=== PATIENT | male | born 1950 | race Caucasian/White ===

== ENCOUNTER 2018-02-01 21:07 | Inpatient (IN) ==
--- NOTE | 2018-02-01 21:58 | XR ---
EXAM DATE: 02/01/2018 9:56 PM EST AGE/SEX: 67 years / Male INDICATIONS: Cardiac disease. CLINICAL DATA: This is the patient's initial encounter. Patient reports that signs and symptoms have been present for 1 day and indicates a pain score of 0/10. MEDICAL/SURGICAL HISTORY: Hypertension. Cardiovascular disease. Dysphagia. . Cardiac cath. COMPARISON: No prior exams available for comparison. FINDINGS: A single AP view of the chest demonstrates the lungs to be symmetrically aerated without evidence of mass, infiltrate or effusion. The cardiomediastinal contours are unremarkable. Osseous structures a re intact. CONCLUSION: 1. No acute cardiopulmonary disease. Electronically signed by: Vin Goddard MD Board Certified Radiologist 02/01/2018 9:57 PM SHERIDAN T
--- NOTE | 2018-02-01 22:25 | ED ---
HPI General Chief complaint: Neuro Symptoms/Deficit Stated complaint: Double vision, trouble breathing Time Seen by Provider: 02/01/18 21:28 Source: patient and family Limitations: no limitations History of Present Illness HPI narrative: Patient is a 67-year-old male who presents with complaint of progressive weakness of different parts. He states that approximately 1 month ago he started to have intermittent dyspnea. He then started to have some double vision and went to an green building energy engineer whom sent him to an client finance analyst. The client finance analyst noticed a droopy eyelid on the left and he has been referred for an outpatient MRI and further workup. The patient has started to have difficulty swallowing now with increased dyspnea intermittently. At rest he does not feel dyspneic. He denies any weakness in his hands after use. He denies any weakness or numbness to his extremities. No difficulty urinating nor incontinence. No fever nor chills. This had never happened prior to this. He does have a history of previous thyroid cancer. Onset (ago): week(s) Location: face Radiation: non-radiation Severity: moderate Relieving factors: none Exacerbating factors: none Treatments prior to arrival: Reports none Related Data Home Medications Medication Instructions Recorded Confirmed lisinopril 40 mg PO DAILY 02/01/18 02/01/18 coenzyme Q10 [CoQ-10] 100 mg PO DAILY 02/02/18 02/02/18 evolocumab [Repatha Syringe] 140 mg SUBCUT Q2W 02/02/18 02/02/18 fenofibric acid 135 mg PO DAILY 02/02/18 02/02/18 [id number]-[id number]-dcp C-Mn 3 tab DAILY 02/02/18 02/02/18 [Glucosamine Chondroitin MaxStr] hydrochlorothiazide 12.5 mg PO DAILY 02/02/18 02/02/18 meloxicam 7.5 mg PO DAILY 02/02/18 02/02/18 omega 7-ipo-yvq-fish oil [Fish Oil] 3,000 mg DAILY 02/02/18 02/02/18 Allergies Allergy/AdvReac Type Severity Reaction Status Date / Time No Known Allergies Allergy Verified 02/01/18 21:24 Review of Systems ROS: all other systems reviewed are negative [facility] Medical History Medical History Blockage of coronary artery of heart (Acute) HTN (hypertension) (Acute) Hyperlipidemia (Acute) Prediabetes (Acute) Thyroid nodule (Acute) Surgical History Surgical History Hx of right heart catheterization (Acute) Family History Family History Father Testicular cancer Mother Colon cancer Brother Pancreatic cancer Social History Social History Substance History: No History of Abuse Second Hand Smoke Exposure: No Smoking Status: Never smoker How Often Do You Have a Drink Containing Alcohol: Monthly or less Recent Travel in [facility] within the Last 8 Weeks: No Recent Out of Country Travel within the Last 8 Weeks: No Immunization History Tetanus Immunization: >5 Years Exam Narrative Exam Narrative: GENERAL: Well-appearing male in no acute distress SKIN: Focused skin assessment warm/dry. HEAD: Atraumatic. Normocephalic. EYES: Pupils equal and round. No scleral icterus. No injection or drainage. ENT: No nasal bleeding or discharge. Mucous membranes pink and moist. NECK: Trachea midline. No JVD. CARDIOVASCULAR: Regular rate and rhythm. No murmur appreciated. Intact and equal peripheral pulses. RESPIRATORY: No accessory muscle use. Clear to auscultation. Breath sounds equal bilaterally. GASTROINTESTINAL: Abdomen soft, non-tender, nondistended. Hepatic and splenic margins not palpable. MUSCULOSKELETAL: No obvious deformities. No clubbing. No cyanosis. No edema. NEUROLOGICAL: Awake and alert. No weakness or numbness to the extremities. Left ptosis. Some dysarthria. PSYCHIATRIC: Appropriate mood and affect; insight and judgment normal. Course Initial Documented Vital Signs Temperature 98.5 F 02/01/18 21:19 Pulse Rate 73 02/01/18 21:19 Respiratory Rate 18 02/01/18 21:19 Blood Pressure 194/109 H 02/01/18 21:19 Pulse Oximetry 97 02/01/18 21:19 Last Documented Vital Signs Temperature 97.8 F 02/02/18 14:35 Pulse Rate 58 L 02/02/18 14:35 Respiratory Rate 18 02/02/18 14:35 Blood Pressure 112/74 02/02/18 14:35 Pulse Oximetry 96 02/02/18 14:35 Sign Out Sign Out Data: Patient Sign Out occurred on 02/01/18 at 23:06. Patient's care was discussed, and care was transferred from Idalmis Jj MD to Beti Guzmán DO. Sign Out Comment: Progressively worsening neuro symptoms. CT head pending. Plan for likely admission. Last updated by Idalmis Jj MD at 02/01/18 23:01 Post-Handoff Eval: 67yo M with history of thyroid nodule, HTN, CAD here with progressive neuro symptoms. Pt started with diplopia and went to green building energy engineer and client finance analyst and was found to ptosis of left eyelid. Has an outpatient MRI brain to r/o stroke that he has not gotten. Then he had dyspnea and went to his transport conductor and he said his heart was ok. Dyspnea has improved but now has difficulty swallowing for the last few days. Has trouble with chewing and his jaw muscle as well. Started having slurred speech today. Denies any focal weakness or numbness in his arms or legs. Labs reviewed, no leukocytosis. H/H normal. BUN/creatinine is elevated at 31/1.41. No prior to compare. Troponin negative. CXR negative. CT brain negative. BP was initially elevated at 207/ 91 and I ordered labetalol. However, BP is now systolic 145 so cancelled labetlol. Pt's symptoms are progressively worsening and is now having difficulty swallowing and slurred speech. Feel that he would benefit from MRIs and neuro consult. Discussed with Dr. Lopez and accepted to his service. Medical Decision Making MDM Narrative Medical decision making narrative: Patient is a 67-year-old male who presents with complaint of progressive neurologic symptoms over the last month. He is hypertensive on arrival but hemodynamically stable. NIF was obtained on arrival which was approximately 40. Imaging and labs pending at time of checkout. Medical Screen Exam Complete: Yes Emergency Medical Condition: Yes Differential Diagnosis Differential Diagnosis: Differential diagnosis includes but is not limited to acute stroke, dissection, aneurysm, myasthenia gravis, multiple sclerosis. Medical Records Medical records reviewed: Yes I reviewed the patient's medical records. Lab Data Result diagrams: 02/01/18 21:50 02/02/18 10:55 Lab Results 02/01/18 02/01/18 02/01/18 Range/Units 21:50 21:50 21:50 WBC 9.9 (4.0-11.0) th/mm3 RBC 4.78 (4.50-5.90) mil/mm3 Hgb 15.8 (13.0-17.0) gm/dL Hct 45.5 (39.0-51.0) % MCV 95.1 (80.0-100.0) fL MCH 33.1 (27.0-34.0) pg MCHC 34.8 (32.0-36.0) % RDW 13.0 (11.6-17.2) % Plt Count 264 (150-450) th/mm3 MPV 7.7 (7.0-11.0) fL Neut % (Auto) 51.7 (16.0-70.0) % Lymph % (Auto) 36.5 (9.0-44.0) % Whitley % (Auto) 10.0 H (0.0-8.0) % Eos % (Auto) 1.4 (0.0-4.0) % Baso % (Auto) 0.4 (0.0-2.0) % Neut # (Auto) 5.1 (1.8-7.7) th/mm3 Lymph # (Auto) 3.6 (1.0-4.8) th/mm3 Whitley # (Auto) 1.0 H (0.0-0.9) th/mm3 Eos # (Auto) 0.1 (0.0-0.4) th/mm3 Baso # (Auto) 0.0 (0.0-0.2) th/mm3 WBC Differential . Differential Comment Auto diff final ESR (0-20) mm/hr PT 10.7 (9.8-11.6) sec INR 1.1 Ratio APTT 33.1 H (23.4-31.7) sec Sodium 138 (136-145) meq/L Potassium 4.0 (3.5-5.1) meq/L Chloride 101 (98-107) meq/L Carbon Dioxide 27.8 (21.0-32.0) meq/L Anion Gap 9 (5-15) meq/L BUN 31 H (7-18) mg/dL Creatinine 1.41 H (0.60-1.30) mg/dL Estimated GFR 50 L (>89) mL/min POC Glucose (68-110) mg/dl Random Glucose 97 (74-106) mg/dL Calcium 9.1 (8.5-10.1) mg/dL Total Bilirubin 0.6 (0.2-1.0) mg/dL AST 28 (15-37) U/L ALT 53 (12-78) U/L Alkaline Phosphatase 40 L (45-117) U/L Total Creatine Kinase 288 (39-308) U/L CK-MB (CK-2) 5.6 H (0.5-3.6) ng/mL Troponin I Less than 0.02 L (0.02-0.05) ng/mL Total Protein 8.0 (6.4-8.2) g/dL Total Protein (PEP) (6.4-8.2) gm/dL Albumin 4.3 (3.4-5.0) g/dL Vitamin B12 (193-986) pg/mL TSH (0.358-3.740) uIU/mL Free T4 (0.76-1.46) ng/dL Rheumatoid Factor Scrn (Negative) Rheumatoid Factor Titer 02/02/18 02/02/18 02/02/18 Range/Units 10:54 10:55 10:55 WBC (4.0-11.0) th/mm3 RBC (4.50-5.90) mil/mm3 Hgb (13.0-17.0) gm/dL Hct (39.0-51.0) % MCV (80.0-100.0) fL MCH (27.0-34.0) pg MCHC (32.0-36.0) % RDW (11.6-17.2) % Plt Count (150-450) th/mm3 MPV (7.0-11.0) fL Neut % (Auto) (16.0-70.0) % Lymph % (Auto) (9.0-44.0) % Whitley % (Auto) (0.0-8.0) % Eos % (Auto) (0.0-4.0) % Baso % (Auto) (0.0-2.0) % Neut # (Auto) (1.8-7.7) th/mm3 Lymph # (Auto) (1.0-4.8) th/mm3 Whitley # (Auto) (0.0-0.9) th/mm3 Eos # (Auto) (0.0-0.4) th/mm3 Baso # (Auto) (0.0-0.2) th/mm3 WBC Differential Differential Comment ESR (0-20) mm/hr PT (9.8-11.6) sec INR Ratio APTT (23.4-31.7) sec Sodium 139 (136-145) meq/L Potassium 4.1 (3.5-5.1) meq/L Chloride 106 (98-107) meq/L Carbon Dioxide 25.6 (21.0-32.0) meq/L Anion Gap 7 (5-15) meq/L BUN 25 H (7-18) mg/dL Creatinine 1.26 (0.60-1.30) mg/dL Estimated GFR 57 L (>89) mL/min POC Glucose 103 (68-110) mg/dl Random Glucose 101 (74-106) mg/dL Calcium 9.1 (8.5-10.1) mg/dL Total Bilirubin (0.2-1.0) mg/dL AST (15-37) U/L ALT (12-78) U/L Alkaline Phosphatase (45-117) U/L Total Creatine Kinase (39-308) U/L CK-MB (CK-2) (0.5-3.6) ng/mL Troponin I (0.02-0.05) ng/mL Total Protein (6.4-8.2) g/dL Total Protein (PEP) 8.0 (6.4-8.2) gm/dL Albumin (3.4-5.0) g/dL Vitamin B12 639 (193-986) pg/mL TSH 3.070 (0.358-3.740) uIU/mL Free T4 0.99 (0.76-1.46) ng/dL Rheumatoid Factor Scrn Negative (Negative) Rheumatoid Factor Titer Not Reportable 02/02/18 02/02/18 Range/Units 12:20 14:38 WBC (4.0-11.0) th/mm3 RBC (4.50-5.90) mil/mm3 Hgb (13.0-17.0) gm/dL Hct (39.0-51.0) % MCV (80.0-100.0) fL MCH (27.0-34.0) pg MCHC (32.0-36.0) % RDW (11.6-17.2) % Plt Count (150-450) th/mm3 MPV (7.0-11.0) fL Neut % (Auto) (16.0-70.0) % Lymph % (Auto) (9.0-44.0) % Whitley % (Auto) (0.0-8.0) % Eos % (Auto) (0.0-4.0) % Baso % (Auto) (0.0-2.0) % Neut # (Auto) (1.8-7.7) th/mm3 Lymph # (Auto) (1.0-4.8) th/mm3 Whitley # (Auto) (0.0-0.9) th/mm3 Eos # (Auto) (0.0-0.4) th/mm3 Baso # (Auto) (0.0-0.2) th/mm3 WBC Differential Differential Comment ESR 8 (0-20) mm/hr PT (9.8-11.6) sec INR Ratio APTT (23.4-31.7) sec Sodium (136-145) meq/L Potassium (3.5-5.1) meq/L Chloride (98-107) meq/L Carbon Dioxide (21.0-32.0) meq/L Anion Gap (5-15) meq/L BUN (7-18) mg/dL Creatinine (0.60-1.30) mg/dL Estimated GFR (>89) mL/min POC Glucose 92 (68-110) mg/dl Random Glucose (74-106) mg/dL Calcium (8.5-10.1) mg/dL Total Bilirubin (0.2-1.0) mg/dL AST (15-37) U/L ALT (12-78) U/L Alkaline Phosphatase (45-117) U/L Total Creatine Kinase (39-308) U/L CK-MB (CK-2) (0.5-3.6) ng/mL Troponin I (0.02-0.05) ng/mL Total Protein (6.4-8.2) g/dL Total Protein (PEP) (6.4-8.2) gm/dL Albumin (3.4-5.0) g/dL Vitamin B12 (193-986) pg/mL TSH (0.358-3.740) uIU/mL Free T4 (0.76-1.46) ng/dL Rheumatoid Factor Scrn (Negative) Rheumatoid Factor Titer Imaging Data Radiologist's impression: Chest X-Ray 02/01/18 21:42 CONCLUSION: 1. No acute cardiopulmonary disease. Head CT 02/01/18 21:42 CONCLUSION: No acute intracranial abnormality. . Carotid Doppler Study 02/02/18 00:00 CONCLUSION: Negative examination for a hemodynamically significant carotid stenosis. Dilip Enrique MD FACR Chest CT 02/02/18 00:00 CONCLUSION: 1. There is no apical lung mass. 2. Significant coronary calcifications 3. Marked fatty liver with gynecomastia Head MRI 02/02/18 22:43 CONCLUSION: No intracranial abnormality is seen. Head MRA 02/02/18 22:43 CONCLUSION: Negative MRA. Head/Brain Mag Res Venography 02/02/18 22:43 CONCLUSION: The dural sinuses are patent. Discharge Plan Discharge Disposition Patient Disposition: ED Admit(ED Internal Use Only) Discharge Condition Condition: Stable Discharge Order Discharge Orders: ED Use Only Admit Order (Routine); Ordered 02/02/18 Ordered By: Beti Guzmán Discharge Details Diagnosis: Ptosis, Slurred speech Physicians Team ED Provider: Beti Guzmán Primary Care Provider: UNKNOWN, Attending Provider: Singh Escobedo Other Providers: Jerman Denny Status ED Status: Left Department Discharge Information Discharge Date/Time: 02/02/18 03:15
[2018-02-01 22:34] LABS: Baso % (Auto) 0.4 % (0.0-2.0); Eos # (Auto) 0.1 th/mm3 (0.0-0.4); Eos % (Auto) 1.4 % (0.0-4.0); Hematocrit 45.5 % (39.0-51.0); Hemoglobin 15.8 gm/dL (13.0-17.0); Lymph # (Auto) 3.6 th/mm3 (1.0-4.8); Lymph % (Auto) 36.5 % (9.0-44.0); Mean Corpuscular HGB Conc 34.8 % (32.0-36.0); Mean Corpuscular Hemoglobin 33.1 pg (27.0-34.0); Mean Corpuscular Volume 95.1 fL (80.0-100.0); Mean Platelet Volume 7.7 fL (7.0-11.0); Neut # (Auto) 5.1 th/mm3 (1.8-7.7); Neut % (Auto) 51.7 % (16.0-70.0); Platelet Count 264 th/mm3 (150-450); Red Blood Count 4.78 mil/mm3 (4.50-5.90); White Blood Count 9.9 th/mm3 (4.0-11.0)
[2018-02-01 22:46] LABS: Albumin 4.3 g/dL (3.4-5.0); Anion Gap 9 meq/L (5-15); Aspartate Aminotransferase 28 U/L (15-37); Blood Urea Nitrogen 31 mg/dL (7-18); Calcium 9.1 mg/dL (8.5-10.1); Carbon Dioxide 27.8 meq/L (21.0-32.0); Chloride 101 meq/L (98-107); Glomerular Filtration Rate 50 mL/min (>89); Glucose,Random 97 mg/dL (74-106); Sodium 138 meq/L (136-145)
[2018-02-01 22:47] LABS: Activated Partial Thrombo Time 33.1 sec (23.4-31.7); Alanine Aminotransferase 53 U/L (12-78); INR 1.1 Ratio; Prothrombin Time 10.7 sec (9.8-11.6)
[2018-02-01 22:51] LABS: Alkaline Phosphatase 40 U/L (45-117); Creatine Kinase 288 U/L (39-308)
[2018-02-01 23:03] LABS: Creatine Kinase MB 5.6 ng/mL (0.5-3.6)
[2018-02-01] MEDS ORDERED: Labetalol HCl Inj 100 MG/20 ML Vial IV.PUSH ONE (23:22)
--- NOTE | 2018-02-01 23:22 | CT ---
EXAM DATE: 02/01/2018 11:17 PM EST AGE/SEX: 67 years / Male INDICATIONS: Double vision, general weakness. CLINICAL DATA: This is the patient's initial encounter. Patient reports that signs and symptoms have been present for 1 day and indicates a pain score of 0/10. MEDICAL/SURGICAL HISTORY: Hypertension. Carcinoma, thyroid. None. RADIATION DOSE: 56.35 CTDI (mGy) COMPARISON: No prior exams available for comparison. TECHNIQUE: CT of the head without contrast. Using automated exposure control and adjustment of the mA and/or kV according to patient size, radiation dose was kept as low as reasonably achievable to ob tain optimal diagnostic quality images. DICOM format image data is available electronically for revi ew and comparison. FINDINGS: Cerebrum: The ventricles are normal for age. No evidence of midline shift, mass lesion, hemorrhage or acute infarction. No extraaxial fluid collections are seen. Posterior Fossa: The cerebellum and brainstem are intact. The 4th ventricle is midline. The cerebe llopontine angle is unremarkable. Extracranial: The visualized portion of the orbits is intact. Skull: The calvaria is intact. No evidence of skull fracture. CONCLUSION: No acute intracranial abnormality. . Electronically signed by: Dallas Graf MD Board Certified Radiologist 02/01/2018 11:20 PM EST
[2018-02-01] MEDS ORDERED: Sod Chloride 0.9% Inj 1,000 ML IV.SIG SCH (23:30)
[2018-02-02] MEDS ORDERED: Gadobutrol PF 10 MMOL/10 ML Vial (for RAD) IV.SIG ONE (00:16)
[2018-02-02] MEDS ORDERED: Dextrose 50% in Water 50 ML Vial IV.PUSH PRN (00:17)
--- NOTE | 2018-02-02 00:43 | MR ---
EXAM DATE: 02/02/2018 12:30 AM EST AGE/SEX: 67 years / Male INDICATIONS: . Double vision and slurred speech for one day. CLINICAL DATA: This is the patient's initial encounter. Patient reports that signs and symptoms have been present for 1 day and indicates a pain score of 6/10. MEDICAL/SURGICAL HISTORY: Hypertension. None. COMPARISON: No prior exams available for comparison. TECHNIQUE: 3D [id number] MRA was performed. Source images, multiplanar STS MIP, and 3D volum e MIP reconstructions were reviewed. FINDINGS: There is excellent visualization of the major intracranial arteries out to the second-order branch ve ssels. There is no evidence for aneurysm, vessel truncation or stenosis, and no evidence for vascula r malformation. CONCLUSION: Negative MRA. Electronically signed by: Dallas Graf MD Board Certified Radiologist 02/02/2018 12:41 AM EST
--- NOTE | 2018-02-02 00:54 | MR ---
EXAM DATE: 02/02/2018 12:50 AM EST AGE/SEX: 67 years / Male INDICATIONS: . Double vision with slurred speech. CLINICAL DATA: This is the patient's initial encounter. Patient reports that signs and symptoms have been present for 1 day and indicates a pain score of 6/10. MEDICAL/SURGICAL HISTORY: Hypertension. None. COMPARISON: No prior exams available for comparison. TECHNIQUE: Multiplanar, multisequence examination of the brain was performed without and with 10 ml G adavist (gadobutrol) contrast as a single exam dose. FINDINGS: Cerebrum: The ventricles are normal for age. No evidence of midline shift, mass lesion, hemorrhage or acute infarction. No extraaxial fluid collections are seen. The pituitary gland and suprasellar cistern are normal in configuration. White Matter: No significant signal abnormalities are seen in the white matter. Posterior Fossa: The cerebellum and brainstem are intact. The 4th ventricle is midline. The cerebel lopontine angle is unremarkable. The cerebellar tonsils are normal in position. Diffusion Imaging: No focal areas of restricted diffusion are seen. No evidence of acute infarction . Extracranial: The visualized portions of the orbits and paranasal sinuses are unremarkable. Post Contrast: No abnormal areas of parenchymal or dural enhancement. No evidence of blood-brain ba rrier breakdown. CONCLUSION: No intracranial abnormality is seen. Electronically signed by: Dallas Graf MD Board Certified Radiologist 02/02/2018 12:53 AM EST
--- NOTE | 2018-02-02 00:58 | MR ---
EXAM DATE: 02/02/2018 12:54 AM EST AGE/SEX: 67 years / Male INDICATIONS: . Double vision with slurred speech. CLINICAL DATA: This is the patient's initial encounter. Patient reports that signs and symptoms have been present for 1 day and indicates a pain score of 7/10. MEDICAL/SURGICAL HISTORY: Hypertension. None. COMPARISON: [facility] – [place] HEAD W & W/O CONTRAST, 02/01/2018. . TECHNIQUE: MR cerebral venography is performed without and with 10 ml Gadavist (gadobutrol) contrast (single exam dose). Source images, 3D volume MIP, and sliding thin slab MIP reconstructions were re viewed. FINDINGS: The dural sinuses appear patent. The superior sagittal sinus primarily empties into the right transve rse sinus. The right transverse and sigmoid sinuses are larger than the left side. This is a normal f inding. Significant thrombus of the dural sinuses is not seen. CONCLUSION: The dural sinuses are patent. Electronically signed by: Dallas Graf MD Board Certified Radiologist 02/02/2018 12:57 AM EST
[2018-02-02] MEDS: Sod Chloride 0.9% Inj 1,000 ML IV.CONT SCH ×3 (04:16→23:31)
--- NOTE | 2018-02-02 08:10 | P.HP ---
History of Present Illness Primary Care Physician: UNKNOWN Chief Complaint: Dysphagia, slurred speech, blurred vision History of Present Illness: 67-year-old male with history of hypertension, CAD (no stents), hyperlipidemia, diet-controlled prediabetes, presents with multiple neurological complaints. Patient states he started to notice some unusual symptoms about a month ago when he was swimming in a pool and became very short of breath and took him a long time to recover. He states at he recovered from this, then had another episode of shortness of breath at rest a week later. Then he states over the past few days he has noticed some difficulty swallowing secondary to weakness of the jaw and throat. Denies any choking on his food. He also noticed his left eyelid has been more droopy and he has difficulty keeping his eyelids open. He also reports blurred vision and unable to focus on objects. He denies any headache, lightheadedness, dizziness, or unilateral numbness/ tingling. He denies any difficulty with ambulation. Denies any chest pain or palpitations. He takes a baby aspirin daily along with blood pressure and cholesterol medications. He denies any other medical complaints at this time. Review of Systems All other systems reviewed negative except as stated in HPI PMFSH - History History Provided By: Patient - Medical History Medical History: Medical History (Last Updated 02/02/18 @ 13:36 by Shireen Corbin) Blockage of coronary artery of heart HTN (hypertension) Hyperlipidemia Prediabetes Thyroid nodule - Surgical History Surgical History: Surgical History (Last Reviewed 02/02/18 @ 10:09 by Miranda Isaac) Hx of right heart catheterization - Family History Family History: Family History (Last Updated 02/02/18 @ 13:37 by Shireen Corbin) Father Testicular cancer Mother Colon cancer Brother Pancreatic cancer - Social History I have reviewed the patient's Social History: Yes - Tobacco History Second Hand Smoke Exposure: No Smoking Status: Never smoker - Alcohol History How Often Do You Have a Drink Containing Alcohol: Monthly or less - Substance Use History Substance History: No History of Abuse - Travel History Recent Travel in the [place] Within the Last 8 Weeks: No Recent Travel Out of the Country Within the Last 8 Weeks: No - Immunization History Tetanus Immunization: >5 Years Medications and Allergies Active Medications: Active Medications Aspirin (Aspirin Chew) 81 mg PO DAILY [facility]AREN Dextrose (D50w Vial) 50 ml IV.PUSH UNSCH PRN PRN Reason: per Hypoglycemic Protocol Glucagon (Glucagon Inj) 1 mg OTHER UNSCH PRN PRN Reason: per Hypoglycemic Protocol Sodium Chloride (Ns Inj) 1,000 mls @ 70 mls/hr IV.CONT .[id number] [facility] Last Admin: 02/02/18 04:16 Dose: 70 mls/hr Lisinopril (Prinivil) 40 mg PO DAILY [facility] Sodium Chloride (Ns Flush) 2 ml IV.FLUSH PRN PRN PRN Reason: FLUSH AFTER USING IV ACCESS Allergies Allergy/AdvReac Type Severity Reaction Status Date / Time No Known Allergies Allergy Verified 02/01/18 21:24 Home Medications Medication Instructions Recorded Confirmed Type lisinopril 40 mg PO DAILY 02/01/18 02/01/18 History Exam Vital signs: Vital Signs 02/01/18 21:19 02/01/18 21:35 02/01/18 22:26 Temperature 98.5 F Pulse Rate 73 75 Respiratory Rate 18 18 Blood Pressure 194/109 H 207/91 H Pulse Oximetry 97 96 98 02/02/18 01:11 02/02/18 04:20 02/02/18 07:22 Temperature 97.8 F 98.3 F Pulse Rate 65 53 L 62 Respiratory Rate 18 16 18 Blood Pressure 134/73 129/68 143/80 H Pulse Oximetry 94 L 95 Intake & Output 02/01/18 02/02/18 02/02/18 18:59 06:59 18:59 Intake Total 1000 / 1000 Balance 1000 / 1000 Weight 113.398 kg Intake: IV 1000 / 1000 NS Inj 1,000 ML @ 1000 mls/hr 1000 / 1000 IV.SIG BOLUS [facility] Rx#:[id number] Other: Weight On Admission 113.398 kg Narrative: GENERAL: Well-nourished, well-developed pleasant male patient in [facility]. SKIN: Warm and dry. No rash. HEENT: Normocephalic. Atraumatic. Bilateral ptosis, worse on the left. EOMI. Pupils equal and round. Mucous membranes pink and moist. NECK: Supple. Trachea midline. CARDIOVASCULAR: Regular rate and rhythm. No murmur appreciated. RESPIRATORY: No accessory muscle use. Clear to auscultation. Breath sounds equal bilaterally. GASTROINTESTINAL: Abdomen soft, non-tender, nondistended. Normoactive bowel sounds x4. MUSCULOSKELETAL: No obvious deformities. Extremities without clubbing, cyanosis , or edema. NEUROLOGICAL: Awake and alert. No obvious cranial nerve deficits. 5/5 bilateral upper and lower extremities strength. Normal speech. No tongue deviation. Symmetrical nasolabial folds. PSYCHIATRIC: Appropriate mood and affect; insight and judgment normal. Results - Labs CBC & Chem 7: 02/01/18 21:50 02/02/18 10:55 Labs: Laboratory Results - last 24 hr 02/01/18 02/01/18 02/01/18 21:50 21:50 21:50 WBC 9.9 RBC 4.78 Hgb 15.8 Hct 45.5 MCV 95.1 MCH 33.1 MCHC 34.8 RDW 13.0 Plt Count 264 MPV 7.7 Neut % (Auto) 51.7 Lymph % (Auto) 36.5 [place] % (Auto) 10.0 H Eos % (Auto) 1.4 Baso % (Auto) 0.4 Neut # (Auto) 5.1 Lymph # (Auto) 3.6 [place] # (Auto) 1.0 H Eos # (Auto) 0.1 Baso # (Auto) 0.0 WBC Differential . Differential Comment Auto diff final PT 10.7 INR 1.1 APTT 33.1 H Sodium 138 Potassium 4.0 Chloride 101 Carbon Dioxide 27.8 Anion Gap 9 BUN 31 H Creatinine 1.41 H Estimated GFR 50 L Random Glucose 97 Calcium 9.1 Total Bilirubin 0.6 AST 28 ALT 53 Alkaline Phosphatase 40 L Total Creatine Kinase 288 CK-MB (CK-2) 5.6 H Troponin I Less than 0.02 L Total Protein 8.0 Albumin 4.3 - Imaging Impressions Chest X-Ray 02/01/18 21:42 CONCLUSION: 1. No acute cardiopulmonary disease. Head CT 02/01/18 21:42 CONCLUSION: No acute intracranial abnormality. . Head MRI 02/02/18 22:43 CONCLUSION: No intracranial abnormality is seen. Head MRA 02/02/18 22:43 CONCLUSION: Negative MRA. Head/Brain Mag Res Venography 02/02/18 22:43 CONCLUSION: The dural sinuses are patent. Caprini VTE Risk Assessment Caprini VTE Risk Assessment: Moderate/High Risk (score >= 2) Caprini Risk Assessment Model: Point Value = 1 Point Value = 2 Point Value = 3 Point Value = 5 Age 41-60 Minor surgery BMI > 25 kg/m2 Swollen legs Varicose veins or History of unexplained or recurrent spontaneous Oral contraceptives or hormone replacement Sepsis (< 1 month) Serious lung disease, including pneumonia (< 1 month) Abnormal pulmonary function Acute myocardial infarction Congestive heart failure (< 1 month) History of inflammatory bowel disease Medical patient at bed rest Age 61-74 Arthroscopic surgery Major open surgery (> 45 min) Laparoscopic surgery (> 45 min) Malignancy Confined to bed (> 72 hours) Immobilizing plaster cast Central venous access Age >= 75 History of VTE Family history of VTE Factor V Leiden Prothrombin [id number] Lupus anticoagulant Anticardiolipin antibodies Elevated serum homocysteine Heparin-induced thrombocytopenia Other congenital or acquired thrombophilia Stroke (< 1 month) Elective arthroplasty Hip, pelvis, or leg fracture Acute spinal cord injury (< 1 month) Prophylaxis Regimen: Total Risk Factor Score Risk Level Prophylaxis Regimen 0-1 Low Early ambulation 2 Moderate Order ONE of the following: *Sequential Compression Device (SCD) *Heparin 5000 units SQ BID 3-4 Higher Order ONE of the following medications: *Heparin 5000 units SQ TID *Enoxaparin/Lovenox 40 mg SQ daily (WT < 150 kg, CrCl > 30 mL/min) *Enoxaparin/Lovenox 30 mg SQ daily (WT < 150 kg, CrCl > 10-29 mL/min) *Enoxaparin/Lovenox 30 mg SQ BID (WT < 150 kg, CrCl > 30 mL/min) AND/OR *Sequential Compression Device (SCD) 5 or more Highest Order ONE of the following medications: *Heparin 5000 units SQ TID (Preferred with Epidurals) *Enoxaparin/Lovenox 40 mg SQ daily (WT < 150 kg, CrCl > 30 mL/min) *Enoxaparin/Lovenox 30 mg SQ daily (WT < 150 kg, CrCl > 10-29 mL/min) *Enoxaparin/Lovenox 30 mg SQ BID (WT < 150 kg, CrCl > 30 mL/min) AND *Sequential Compression Device (SCD) Assessment and Plan - Plan 67-year-old male with history of hypertension, CAD (no stents), hyperlipidemia, diet-controlled prediabetes, presents with multiple neurological complaints. Multiple neurological deficits: With dysphagia, ptosis, blurred vision. -Head CT, brain MRI, brain MRA, and brain MRV all reviewed and unremarkable -CXR negative -Check carotid ultrasound -Neurochecks -Monitor on telemetry -Continue patient's aspirin -Give IV fluid hydration -Consulted PT/OT/ST -Consulted neurology, suspected myasthenia gravis, requested chest CT, labs, and started him on Mestinon -Monitor for improvement Hypertension: Chronic -Continue patient's lisinopril -Monitor BP, adjust antihypertensives as needed Hyperlipidemia: Chronic -Restart home meds once updated CAD: Diagnosed by cath, however occlusion was unable to be stented -Continue patient's baby aspirin daily -RN to update home med list -Monitor on telemetry -No complaints of chest pain DVT prophylaxis: SCDs
[2018-02-02] MEDS ORDERED: Pyridostigmine Bromide 60 MG Tablet PO ONE (10:15)
[2018-02-02] MEDS: Lisinopril 20 MG Tablet PO SCH (10:41)
--- NOTE | 2018-02-02 11:15 | MB ---
cc: Jerman Allen MD DATE: 02/02/2018 HISTORY OF PRESENT ILLNESS: A 67-year-old right-handed man with a history of hypertension, borderline diabetes, hypercholesterolemia, thyroid nodule. He takes 81 of aspirin a day. About a month ago, he was in a pool swimming and he felt short of breath. Then he seemed to do fine for a week and then he was lying down and felt some shortness of breath about a week after that. Then he began to have droopiness of his eyelids, double vision, worse in the afternoon, some difficulty swallowing. Nothing else below the neck. No weakness, no numbness or tingling. REVIEW OF SYSTEMS: He denies any OH; CABG; stent; angioplasty; A-Fib; Coumadin; renal, hepatic or pulmonary disease; lupus; ulcer; cancer; seizure; or stroke. No recent illness or fever. SOCIAL HISTORY: Not a smoker or drinker, lives with his . FAMILY HISTORY: Positive for cancer. Negative for seizure or stroke. MEDICATIONS AT HOME: Lisinopril and a baby aspirin. PHYSICAL EXAMINATION: VITAL SIGNS: Sinus rhythm, afebrile, 62, 18, 143/80-129/68. NECK: There were no carotid bruits. HEART: Regular rate and rhythm. I did not detect a murmur. GENERAL: He is slightly obese. NEUROLOGIC: Pupils are equal. Visual weiss are full. Extraocular movements intact without nystagmus. There is no double vision at this time. He has bilateral ptosis, worse on the left than the right, which goes away with some ice on the eyelid on the left eye. Face moves symmetrically. Tongue was midline. Pupils muscles are a little bit weak and pharynx elevates symmetrically. Speech is fluent. He is not aphasic. He has normal strength in upper and lower extremities bilaterally, including with repetitive testing. DTRs are 1+ and symmetric, and present at the knees bilaterally. Toes downgoing bilaterally. There is no ankle clonus. Pinprick was intact throughout. He is not ataxic on [id number]. DIAGNOSTIC DATA: CBC is normal. Basic metabolic profile: Creatinine 1.41, otherwise normal. GFR is 50. LFTs are normal. CPK normal. Troponin negative. Albumin normal. Coags normal. MRI of the brain was normal. MR venogram of the brain was normal. He had an MRA of the head which was negative. He had a CT scan of the brain which was negative. He had a chest x-ray that was read as negative. ASSESSMENT AND PLAN: He appears to have myasthenia gravis. We will recheck his creatinine. If it looks okay, we will get a CT scan of the chest, give him IV hydration, check some antibodies and some other blood work, start him on some Mestinon. He will probably be discharged tomorrow. MD PHAM Morrison/ingrid , 09:51 AM , 09:58 AM
[2018-02-02 11:42] LABS: Calcium 9.1 mg/dL (8.5-10.1); Carbon Dioxide 25.6 meq/L (21.0-32.0); Potassium 4.1 meq/L (3.5-5.1)
[2018-02-02 12:10] LABS: Free T4 (Free Thyroxine) 0.99 ng/dL (0.76-1.46)
--- NOTE | 2018-02-02 12:17 | CT ---
EXAM DATE: 02/02/2018 12:03 PM EST AGE/SEX: 67 years / Male INDICATIONS: Ptosis and slurred speech. CLINICAL DATA: This is the patient's initial encounter. Patient reports that signs and symptoms have been present for 1 day and indicates a pain score of 0/10. MEDICAL/SURGICAL HISTORY: Hypertension. None. RADIATION DOSE: 19.77 CTDI (mGy) COMPARISON: No prior exams available for comparison. TECHNIQUE: Multiple contiguous axial images were obtained through the chest during bolus infusion of 50 ml Visipaque 320 (iodixanol) nonionic water-soluble contrast as a single exam dose. Images wer e obtained in suspended respiration using multiple row detector helical technique. Using automated e xposure control and adjustment of the mA and/or kV according to patient size, radiation dose was kept as low as reasonably achievable to obtain optimal diagnostic quality images. DICOM format image cherri a is available electronically for review and comparison. FINDINGS: Lungs: The lungs are symmetrically aerated. No infiltrates or nodular densities are seen. There is no pleural effusion. There is no apical lung mass. Mediastinum: There is good visualization of the great vessels of the middle mediastinum. No evidenc e of mediastinal or hilar adenopathy/mass. Moderate to severe left main and LAD calcifications are no mishel Pleurae: No evidence of focal thickening or pleural effusion. Small apparent pericardial cyst is seen adjacent to the ascending aorta Bony Structures: Mild degenerative changes Miscellaneous: Marked fatty replacement to the portion of the liver visualized. This is associated w ith minimal gynecomastia CONCLUSION: 1. There is no apical lung mass. 2. Significant coronary calcifications 3. Marked fatty liver with gynecomastia Electronically signed by: Dilip Enrique MD Board Certified Radiologist 02/02/2018 12:15 PM EST
--- NOTE | 2018-02-02 13:27 | ECHRPT ---
Indication: CVA/TIA CONCLUSIONS Normal left ventricular size. Mild concentric left ventricular hypertrophy. The left ventricular systolic function is normal with an estimated ejection fraction in the range of 55-60%. Aortic valve sclerosis is present. There is trace tricuspid valve regurgitation. The estimated pulmonary arterial pressure is 25 mmHg. BP: / HR: Rhythm: MEASUREMENTS (Male / Female) Normal Values Technical Quality:Fair 2D ECHO LV Diastolic Diameter PLAX 4.6 cm 4.2 - 5.9 / 3.9 - 5.3 cm LV Systolic Diameter PLAX 3.2 cm IVS Diastolic Thickness 1.1 cm 0.6 - 1.0 / 0.6 - 0.9 cm LVPW Diastolic Thickness 1.1 cm 0.6 - 1.0 / 0.6 - 0.9 cm LV Relative Wall Thickness 0.5 RV Internal Dim ED PLAX 3.5 cm LVOT Diameter 2.3 cm Aortic Root Diameter 3.6 cm LA Systolic Diameter LX 3.9 cm 3.0 - 4.0 / 2.7 - 3.8 cm DOPPLER AV Peak Velocity 182.0 cm/s AV Peak Gradient 13.2 mmHg LVOT Peak Velocity 109.0 cm/s LVOT Peak Gradient 4.8 mmHg AV Area Cont Eq pk 2.5 cm Mitral E Point Velocity 99.7 cm/s Mitral A Point Velocity 96.3 cm/s Mitral E to A Ratio 1.0 LV E' Lateral Velocity 10.8 cm/s Mitral E to LV E' Lateral Ratio 9.2 LV E' Septal Velocity 8.2 cm/s Mitral E to LV E' Septal Ratio 12.2 TR Peak Velocity 195.0 cm/s TR Peak Gradient 15.2 mmHg Right Atrial Pressure 10.0 mmHg Pulmonary Artery Systolic Pressu 25.2 mmHg Right Ventricular Systolic Press 25.2 mmHg PV Peak Velocity 102.0 cm/s PV Peak Gradient 4.2 mmHg FINDINGS LEFT VENTRICLE Normal left ventricular size. Mild concentric left ventricular hypertrophy. The left ventricular systolic function is normal with an estimated ejection fraction in the range of 55-60%. RIGHT VENTRICLE Normal right ventricular size and systolic function. LEFT ATRIUM The left atrial size is normal. RIGHT ATRIUM The right atrial size is normal. ATRIAL SEPTUM Normal atrial septal thickness without atrial level shunting by limited color doppler interrogation. AORTA The aortic root and proximal ascending aorta are normal in size on limited imaging. MITRAL VALVE Structurally normal mitral valve. No mitral valve stenosis or regurgitation. AORTIC VALVE Trileaflet aortic valve. Aortic valve sclerosis is present. TRICUSPID VALVE There is trace tricuspid valve regurgitation. The estimated pulmonary arterial pressure is 25 mmHg. PULMONARY VALVE The pulmonary valve is not well visualized. VESSELS The inferior vena cava was not well visualized. PERICARDIUM No pericardial effusion. Wilmar Mcgraw MD, FACC (Electronically Signed) Final Date:02 February 2018 13:26
--- NOTE | 2018-02-02 14:44 | US ---
EXAM DATE: 02/02/2018 2:36 PM EST AGE/SEX: 67 years / Male INDICATIONS: Diplopia, ptosis of the left eyelid, slurred speech, and difficulty swallowing. CLINICAL DATA: This is the patient's initial encounter. Patient reports that signs and symptoms have been present for 1 month and indicates a pain score of 0/10. MEDICAL/SURGICAL HISTORY: Hypertension. Cardiovascular disease. . Cardiac catheterization. COMPARISON: No prior exams available for comparison. VELOCITY PARAMETERS: ICA/CCA Ratio: Right 1.9 , Left 1.0 ICA: Right 147 cm/sec, Left 104 cm/sec CCA: Right 76 cm/sec, Left 101 cm/sec ECA: Right 110 cm/sec, Left 101 cm/sec Vertebral: Right 54 cm/sec antegrade, Left 44 cm/sec antegrade FINDINGS: RIGHT CAROTID: There is no evidence for a hemodynamically significant carotid stenosis. Minimal int imal hyperplasia is present with scattered calcific plaque. LEFT CAROTID: There is no evidence for a hemodynamically significant carotid stenosis. Minimal inti mal hyperplasia is present with scattered calcific plaque. Flow is antegrade in both vertebral arteries. There are no ancillary masses or adenopathy. CONCLUSION: Negative examination for a hemodynamically significant carotid stenosis. Dilip Enrique MD FACR Electronically signed by: Dilip Enrique MD Board Certified Radiologist 02/02/2018 2:43 PM EST
[2018-02-02] MEDS: Pyridostigmine Bromide 60 MG Tablet PO SCH ×2 (18:08→23:31)
[2018-02-03] MEDS: Pyridostigmine Bromide 60 MG Tablet PO SCH ×6 (05:23→18:14)
[2018-02-03] MEDS: Sod Chloride 0.9% Inj 1,000 ML IV.CONT SCH ×3 (05:23→19:14)
[2018-02-03 09:18] LABS: Magnesium 2.1 mg/dL (1.5-2.5)
--- NOTE | 2018-02-03 09:18 | P.PNNEU ---
Subjective Active Medications: Active Medications Aspirin (Aspirin Chew) 81 mg PO DAILY [facility] Last Admin: 02/02/18 10:41 Dose: 81 mg Dextrose (D50w Vial) 50 ml IV.PUSH UNSCH PRN PRN Reason: per Hypoglycemic Protocol Glucagon (Glucagon Inj) 1 mg OTHER UNSCH PRN PRN Reason: per Hypoglycemic Protocol Sodium Chloride (Ns Inj) 1,000 mls @ 70 mls/hr IV.CONT .[id number] [facility] Last Admin: 02/03/18 05:23 Dose: Not Given Lisinopril (Prinivil) 40 mg PO DAILY [facility] Last Admin: 02/02/18 10:41 Dose: 40 mg Pyridostigmine [place] (Mestinon) 60 mg PO Q4H [facility] Last Admin: 02/03/18 07:36 Dose: Not Given Sodium Chloride (Ns Flush) 2 ml IV.FLUSH PRN PRN PRN Reason: FLUSH AFTER USING IV ACCESS Allergies/Adverse Reactions: Allergies Allergy/AdvReac Type Severity Reaction Status Date / Time No Known Allergies Allergy Verified 02/01/18 21:24 Physical Exam Vital signs: Vital Signs 02/02/18 09:53 02/02/18 10:17 02/02/18 14:35 Temperature 98.1 F 97.8 F Pulse Rate 61 60 58 L Respiratory Rate 18 18 Blood Pressure 139/64 112/74 Pulse Oximetry 94 L 96 02/02/18 16:17 02/02/18 20:00 02/02/18 20:17 Temperature 97.2 F L Pulse Rate 57 L 54 L 58 L Respiratory Rate 16 18 Blood Pressure 142/69 H 136/65 Pulse Oximetry 96 96 02/02/18 23:51 02/03/18 03:00 02/03/18 07:33 Temperature 98.6 F 98.1 F 97.9 F Pulse Rate 70 62 63 Respiratory Rate 18 18 16 Blood Pressure 140/61 131/59 L 124/58 L Pulse Oximetry 94 L 94 L 93 L Intake & Output 02/02/18 02/03/18 02/03/18 18:59 06:59 18:59 Intake Total 1000 / 1000 Balance 1000 / 1000 Intake: IV 1000 / 1000 NS Inj 1,000 ML @ 70 mls/hr IV. 1000 / 1000 CONT .[id number] [facility] Rx#:[id number] Other: Date of Last Bowel Movement 01/31/18 Narrative: ptosis better but comes and goes he still fatigues with talking and tired with walking 3.5 hours after this am mestinon some intermittent ptosis now Objective Laboratory Results - last 24 hr 02/02/18 02/02/18 02/02/18 10:54 10:55 10:55 ESR Sodium 139 Potassium 4.1 Chloride 106 Carbon Dioxide 25.6 Anion Gap 7 BUN 25 H Creatinine 1.26 Estimated GFR 57 L POC Glucose 103 Random Glucose 101 Calcium 9.1 Total Protein (PEP) 8.0 Albumin (PEP) 5.18 H Albumin/Globulin Ratio 1.84 Kkxnw-3-Enoghrtcs 0.15 Sptez-3-Tbscasots 0.78 Beta Globulins 0.85 Gamma Globulins 1.05 Vitamin B12 639 TSH 3.070 Free T4 0.99 Rheumatoid Factor Scrn Negative Rheumatoid Factor Titer Not Reportable 02/02/18 02/02/18 02/02/18 12:20 14:38 18:00 ESR 8 Sodium Potassium Chloride Carbon Dioxide Anion Gap BUN Creatinine Estimated GFR POC Glucose 92 81 Random Glucose Calcium Total Protein (PEP) Albumin (PEP) Albumin/Globulin Ratio Cyohz-3-Ygyvqoukl Upwcz-7-Ysvvxxiej Beta Globulins Gamma Globulins Vitamin B12 TSH Free T4 Rheumatoid Factor Scrn Rheumatoid Factor Titer 02/03/18 07:38 ESR Sodium Potassium Chloride Carbon Dioxide Anion Gap BUN Creatinine Estimated GFR POC Glucose 98 Random Glucose Calcium Total Protein (PEP) Albumin (PEP) Albumin/Globulin Ratio Easka-4-Mjkpnftqs Xumwd-3-Ueaidwypb Beta Globulins Gamma Globulins Vitamin B12 TSH Free T4 Rheumatoid Factor Scrn Rheumatoid Factor Titer Review/Management - Review/Management Plan: imp o2 sat 92-95 check abg inc mestinon to 1.5 pills q 6 hours feels better on mestinon but not back to nl ct chest neg but fatty liver he will ask med team about that check pft his is borderline diabetic and hx some cad recent stress test neg but tells me he has 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 my plan is po steroids and pex and inc mestinon he could get first two pex here and then rest o/p qod
[2018-02-03 09:21] LABS: Chol/HDL Ratio 3.65 Ratio; HDL Cholesterol 34.7 mg/dL (40.0-60.0)
[2018-02-03 09:50] LABS: ABG Base Excess 2.6 mmol/L (-2-2); ABG PCO2 46 mmHg (38-42); ABG PO2 74 mmHg (61-120)
[2018-02-03] MEDS: Lisinopril 20 MG Tablet PO SCH (10:34)
--- NOTE | 2018-02-03 15:50 | MB ---
cc: Sharon Herrera MD DATE: 02/03/2018 REASON FOR CONSULTATION: Myasthenia gravis. History of shortness of breath. HISTORY OF PRESENT ILLNESS: Mr. Briscoe is a 67-year-old male with a known history of hypertension, hyperlipidemia, borderline diabetes, had some dyspnea on exertion several weeks prior to his hospitalization, did better for a while; however, again became more short of breath, noticed droopiness of his eyelids, diplopia and some difficulty swallowing, was seen by neurology, felt to have myasthenia gravis and is being treated for same. I am asked to see the patient at this time for his shortness of breath, which occurred earlier with exertion; however, he is not with respiratory difficulty at the moment. PAST MEDICAL HISTORY: Hypertension, hyperlipidemia, borderline diabetes as discussed above. SOCIAL HISTORY: Does not smoke, does not drink. , lives with . FAMILY HISTORY: Negative for myasthenia. Positive for malignancy, otherwise unremarkable. MEDICATIONS AT HOME: Include: 1. Baby aspirin. 2. Lisinopril. ALLERGIES: NONE KNOWN TO MEDICATION. FAMILY HISTORY: Noncontributory. REVIEW OF SYSTEMS: A 12-point review of systems as per HPI and past history, otherwise negative. PHYSICAL EXAMINATION: GENERAL: The patient is alert, appears in no distress, noticeable eye droopiness VITAL SIGNS: Pulse 64, respirations 18, blood pressure 138/78, oxygen saturation 96% on room air. HEENT: Unremarkable. Eyes without icterus. NECK: Without adenopathy, thyroid enlargement. Central trachea. CHEST: Without dullness to percussion. Clear to auscultation. CARDIOVASCULAR: PMI distant. S1, S2 audible. No murmur. No rub. ABDOMEN: Lax, audible bowel sounds. PSYCHIATRIC: No clubbing, cyanosis or edema. SKIN: Normal. No lymphadenopathy. LABORATORY DATA: White count 9.9, hemoglobin 15, hematocrit 45, platelets 264,000. INR 1.1. ABG pH 7.39, pCO2 of 46, pO2 74. IMPRESSION: 1. Myasthenia gravis. 2. Exertional dyspnea, probably related to above. 3. Hypertension. 4. Hyperlipidemia. PLAN: The patient had exertional dyspnea and may very well be related to his muscle weakness. His myasthenia is being treated at present. His arterial blood gas is adequate. The pCO2, borderline high. We will obtain baseline spirometric exam and monitor him closely. Should the need arise, noninvasive ventilation would be used; however as mentioned, he seems stable at this time. I do thank you for asking me to partake in Mr. Briscoe's care. Sharon Herrera MD WWW/ct , 03:09 PM , 03:17 PM
--- NOTE | 2018-02-03 16:43 | P.HPUP ---
Discussed with Dr. Escobedo, IR will place Vas-cath in am Please don't hesitate to call my cell phone if you have any questions Barry Kidd MD [facility] [phone]
--- NOTE | 2018-02-03 18:15 | P.PNIM ---
Subjective Interval history: Evaluated this morning at bedside. Patient denies any worsening of his visual symptoms at this time but does report that when he first presented he had some difficulty with swallowing. Patient denies chest pain or shortness of breath or palpitations. Case reviewed with hematology and neurology and plan is for patient to have plasma exchange on 02/04 after interventional radiology places vascular access which was coordinated with specials procedure coverage attending on 02/03. Physical Exam Vital signs: Last Vital Signs Temp 98.6 F 02/03/18 16:00 Pulse 56 L 02/03/18 16:00 Resp 16 02/03/18 16:00 BP 165/80 H 02/03/18 16:00 Pulse Ox 93 L 02/03/18 16:00 Intake & Output 02/01/18 02/02/18 02/03/18 02/04/18 06:59 06:59 06:59 06:59 Intake Total 1000 / 1000 1000 / 1000 1000 / 1000 Balance 1000 / 1000 1000 / 1000 1000 / 1000 Weight 113.398 kg General: No acute distress, conversational HEENT: Slight left ptosis, PERRLA, EOMI Cardiovascular: S1/S2. Regular rate and rhythm Respiratory: Clear to auscultation Gastrointestinal: Soft, nontender, nondistended, no guarding or rebound appreciated. Extremity: No calf tenderness, 2+ radial pulse right upper extremity Results Labs CBC & Chem 7: 02/01/18 21:50 02/02/18 10:55 Assessment and Plan (1) Hypertension: Code(s): I10 - Essential (primary) hypertension Status: Acute Plan Patient is a pleasant 67-year-old male with past medical history of hypertension , hyperlipidemia, diet-controlled prediabetes who presented with complaints of dysphagia, ptosis, and blurred vision concerning for acute neurological condition such as myasthenia gravis Neurology:? Myasthenia gravis Neurology consulted and recommendations appreciated via EMR Prednisone to be administered on 02/05 after plasma exchange. As per neurology patient may have first 2 sessions inpatient and receive outpatient therapy Pulmonary consulted and recommendations appreciated via EMR Hematology consulted and recommendations to be appreciated Continue neurochecks Head CT, brain MRI, brain MRA, and all imaging thus far unremarkable. Continue pyridostigmine Physical therapy/occupational therapy evaluation Continue to monitor on telemetry Cardiology: Hypertension Continue hypertensive regimen DVT prophylaxis: SCD Disposition: Medical surgical unit Diet: Cardiac CODE STATUS: Full code Patient to undergo vas cath placement on 02/04 by interventional radiology Progress Note: Quality VTE Deep Vein Thrombosis/Pulmonary Embolism Present on Admission: No
--- NOTE | 2018-02-03 19:22 | HM ---
Date Performed: 02/02/2018 Time Performed: 11:25:00 HOOKUP DATE: 02/02/18 11:25:00 AM Fri ANALYSIS START TIME: 02/02/2018 11:30:00 AM ANALYSIS END TIME: 02/03/2018 11:16:26 AM PATIENT AGE: 67 PATIENT HEIGHT PATIENT WEIGHT DRUG LIST PATIENT DIAGNOSIS: ptosis slurred speech TEST NARRATIVE: The patient's average heart rate was 60 BPM. No episodes of tachycardia wer e noted. Heart rates less than 50 BPM were noted 7% of the time. No pauses exceeding 2.0 seconds were noted. 8 ventricular ectopics, which represented < 1% of the total beat count, were noted. The highest ventricular ectopic frequency occurred from 06:00 AM to 07:00 AM Sat. During this time 6 VE(s) occurred. Ventricular ectopics were observed as 8 isolated beat(s) only. No couplets or run s were noted. Some of the ventricular beats occurred in bigeminal cycles. 34 supraventricular ec topics, which represented < 1% of the total beat count, were noted. The highest supraventricular ect opic frequency occurred from 06:00 AM to 07:00 AM Sat. During this time 7 SVE(s) occurred. No ep isodes of ST depression (defined as -1.0 mm or more) were noted in channel 1. No episodes of ST depr ession (defined as -1.0 mm or more) were noted in channel 2. No episodes of ST depression (defined a s -1.0 mm or more) were noted in channel 3. TEST INTERPRETATION: Holter monitor demonstrates Sinus rhythm with periods of sinus bradycardia. A rare PAC and PVC are noted. There are no other significant even ts seen Signed by : Jerman Nixon
--- NOTE | 2018-02-03 22:28 | MB ---
cc: Va Da Silva MD DATE: 02/03/2018 REASON FOR CONSULTATION: Consult requested by Dr. Allen, neurologist, to arrange plasmapheresis for patient who was recently diagnosed with myasthenia gravis. HISTORY OF PRESENT ILLNESS: Rajinder is a pleasant 67-year-old male. He moved to this area from [place] about a month ago. He has been having neurological symptoms with difficulty swallowing, slurring of speech and ptosis with diplopia. He came in to the emergency room with these symptoms. Neurology was consulted. The patient was suspected to have myasthenia gravis. He had multiple studies done, which all came back negative. Dr. Allen started him on Mestinon and steroid. The patient's symptoms still persist. Therefore, Dr. Allen is requesting plasmapheresis. I did receive a call from Dr. Escobedo, hospitalist about arranging the plasmapheresis. I advised him to arrange the vascath as soon as possible. Vascular surgery was consulted. It appears that interventional radiologist will place vascath tomorrow morning. The patient is anxious to start plasmapheresis. He wants to get better and wants to go home. The rest of the review of systems is negative. PAST MEDICAL HISTORY: Hypertension, hypercholesterolemia, prediabetic, coronary artery disease, thyroid nodule. PAST SURGICAL HISTORY: Cardiac catheterization. ALLERGIES: NONE. MEDICATIONS PRIOR TO COMING TO HOSPITAL: Lisinopril. FAMILY HISTORY: None for myasthenia gravis. SOCIAL HISTORY: The patient does not smoke cigarettes, does not drink alcohol. PHYSICAL EXAMINATION: GENERAL: Reveals a well-developed, well-nourished white male, in no apparent distress. VITAL SIGNS: Temperature 98.1, heart rate 61, blood pressure 141/76, O2 saturation 93%. HEENT: PERRLA, ptosis noted. No oral lesions. NECK: No lymphadenopathy. LUNGS: Clear. No wheezing, rhonchi or rales. CARDIOVASCULAR: Regular rate and rhythm. ABDOMEN: Soft, nontender. EXTREMITIES: No pedal edema. NEUROLOGIC: Awake, alert with slurring of speech and difficulty swallowing. SKIN: No significant lesions noted. ASSESSMENT AND PLAN: 1. New onset myasthenia gravis, currently on Mestinon and steroid. 2. CAT scan of the chest does not show any evidence of thymoma. PLAN: I have reviewed his available records, and I have discussed with the patient and multiple family members regarding the plasmapheresis procedure. We discussed that the plasmapheresis is used in acute episodes of myasthenia gravis to have quick control of the disease until the other medication kicks in. He is quite symptomatic. He has slurring of speech. He has difficulty swallowing. He has ptosis. The patient will have a vascath put in by interventional radiologist tomorrow. We will arrange plasmapheresis with albumin exchange starting tomorrow. We will do couple of phereses in-house and then we will arrange this as an outpatient. I will discuss with Dr. Allen how many treatments he wanted for the patient to have. Of course, it depends on how he responds to the plasmapheresis. The risks, benefits, and alternative of the plasmapheresis were discussed with the patient. He has agreed and wants to proceed with that. Thank you for asking my opinion. MD AUDREY Burgos/bola , 09:56 PM , 10:09 PM [place]
[2018-02-04] MEDS: Pyridostigmine Bromide 60 MG Tablet PO SCH ×4 (00:36→22:08)
[2018-02-04] MEDS: Sod Chloride 0.9% Inj 1,000 ML IV.CONT SCH ×2 (00:48→09:51)
[2018-02-04] MEDS ORDERED: predniSONE 20 MG Tablet PO SCH (09:00)
--- NOTE | 2018-02-04 09:14 | P.PNNEU ---
Subjective Active Medications: Active Medications Aspirin (Aspirin Chew) 81 mg PO DAILY [facility] Last Admin: 02/03/18 10:33 Dose: 81 mg Dextrose (D50w Vial) 50 ml IV.PUSH UNSCH PRN PRN Reason: per Hypoglycemic Protocol Glucagon (Glucagon Inj) 1 mg OTHER UNSCH PRN PRN Reason: per Hypoglycemic Protocol Hydrochlorothiazide (Microzide) 12.5 mg PO DAILY [facility] Last Admin: 02/03/18 18:15 Dose: 12.5 mg Sodium Chloride (Ns Inj) 1,000 mls @ 70 mls/hr IV.CONT .[id number] [facility] Last Admin: 02/04/18 00:48 Dose: 70 mls/hr Lisinopril (Prinivil) 40 mg PO DAILY [facility] Last Admin: 02/03/18 10:34 Dose: 40 mg Prednisone (Deltasone) 60 mg PO DAILY [facility] Pyridostigmine [place] (Mestinon) 90 mg PO Q6HR [facility] Last Admin: 02/04/18 06:31 Dose: 90 mg Sodium Chloride (Ns Flush) 2 ml IV.FLUSH PRN PRN PRN Reason: FLUSH AFTER USING IV ACCESS Allergies/Adverse Reactions: Allergies Allergy/AdvReac Type Severity Reaction Status Date / Time No Known Allergies Allergy Verified 02/01/18 21:24 Physical Exam Vital signs: Vital Signs 02/03/18 11:00 02/03/18 12:50 02/03/18 16:00 Temperature 98.1 F 98.6 F Pulse Rate 67 61 56 L Respiratory Rate 16 16 Blood Pressure 141/76 H 165/80 H Pulse Oximetry 93 L 93 L 02/03/18 20:00 02/04/18 00:00 02/04/18 04:00 Temperature 98.6 F 98.0 F 97.9 F Pulse Rate 69 53 L 49 L Respiratory Rate 16 18 17 Blood Pressure 188/85 H 136/63 147/68 H Pulse Oximetry 94 L 94 L 93 L 02/04/18 08:37 Temperature 98.6 F Pulse Rate 86 Respiratory Rate 20 Blood Pressure 120/57 L Pulse Oximetry 91 L Intake & Output 02/03/18 02/04/18 02/04/18 18:59 06:59 18:59 Intake Total 1000 / 1000 1000 / 1000 Balance 1000 / 1000 1000 / 1000 Intake: IV 1000 / 1000 1000 / 1000 NS Inj 1,000 ML @ 70 mls/hr IV. 1000 / 1000 1000 / 1000 CONT .[id number] [facility] Rx#:[id number] Other: Date of Last Bowel Movement 01/31/18 Narrative: no ptosis now and nl eye closure 2.5 hours after mestinon speech nl up ion chair Objective Laboratory Results - last 24 hr 02/03/18 02/03/18 02/03/18 07:35 07:35 09:38 Puncture Site Right radial Patient Temperature 98.6 O2 Saturation 91 ABG pH 7.39 ABG pCO2 46 H ABG pO2 74 ABG HCO3 27 H ABG O2 Content 18.8 ABG Base Excess 2.6 H ABG Methemoglobin 1.1 Juan Francisco Test Y Hemoglobin 14.7 Carboxyhemoglobin 1.2 O2 Delivery Device Ra Critical Value No POC Glucose Hemoglobin A1c 6.0 Phosphorus 3.0 Magnesium 2.1 Triglycerides 148 Cholesterol 127 LDL Cholesterol, Calc 63 HDL Cholesterol 34.7 L Cholesterol/HDL Ratio 3.65 02/03/18 02/03/18 12:42 18:19 Puncture Site Patient Temperature O2 Saturation ABG pH ABG pCO2 ABG pO2 ABG HCO3 ABG O2 Content ABG Base Excess ABG Methemoglobin Juan Francisco Test Hemoglobin Carboxyhemoglobin O2 Delivery Device Critical Value POC Glucose 107 93 Hemoglobin A1c Phosphorus Magnesium Triglycerides Cholesterol LDL Cholesterol, Calc HDL Cholesterol Cholesterol/HDL Ratio Review/Management - Review/Management Plan: imp o2 sat 92-95 check abg inc mestinon to 1.5 pills q 6 hours feels better on mestinon but not back to nl ct chest neg but fatty liver he will ask med team about that check pft his is borderline diabetic and hx some cad recent stress test neg but tells me he has 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 my plan is po steroids and pex and inc mestinon he could get first two pex here and then rest o/p qod / loking better on higher dose mestinon hr is down and could be mestinon this needs to be monitored some cad hx med team could look into this labs pend for pex today and and then and could do most o/p hopefully possible dc in am start steroid 4 pm today
[2018-02-04] MEDS: Lisinopril 20 MG Tablet PO SCH (09:17)
--- NOTE | 2018-02-04 09:35 | P.PNIM ---
Subjective Interval history: Patient seen and examined this morning. on schedule with IR later this morning no acute overnight events feels better today and only occasionally with blurred vision but doing fine he says no active chest pain patient with stress test in november with rn hedis in [place] which was negative. PL-eX scheduled today Physical Exam Vital signs: Last Vital Signs Temp 98.6 F 02/04/18 08:37 Pulse 86 02/04/18 08:37 Resp 20 02/04/18 08:37 BP 120/57 L 02/04/18 08:37 Pulse Ox 91 L 02/04/18 08:37 Intake & Output 02/02/18 02/03/18 02/04/18 02/05/18 06:59 06:59 06:59 06:59 Intake Total 1000 / 1000 1000 / 1000 1999 Balance 1000 / 1000 1000 / 1000 1999 Weight 113.398 kg Results Labs CBC & Chem 7: 02/04/18 09:42 02/04/18 09:42 Assessment and Plan (1) Hypertension: Code(s): I10 - Essential (primary) hypertension Status: Acute Plan Patient is a pleasant 67-year-old male with past medical history of hypertension , hyperlipidemia, diet-controlled prediabetes who presented with complaints of dysphagia, ptosis, and blurred vision concerning for acute neurological condition such as myasthenia gravis Neurology:? Myasthenia gravis Neurology consulted and recommendations appreciated via EMR Prednisone to be administered on 02/05 after plasma exchange. Pulmonary consulted and recommendations appreciated via EMR Hematology consulted and recommendations to be appreciated - PLASMA exchange Continue neurochecks Head CT, brain MRI, brain MRA, and all imaging thus far unremarkable. Continue pyridostigmine Physical therapy/occupational therapy evaluation Continue to monitor on telemetry Cardiology: Hypertension Continue hypertensive regimen - negative stress test in november with dr gauthier in [place]. outpatient f/u - next dose repatha is due the - currently on lisinopril, hctz, finofibrate. DVT prophylaxis: SCD Disposition: Medical surgical unit Diet: Cardiac CODE STATUS: Full code Patient to undergo vas cath placement on 02/04 by interventional radiology and start plasma exchange Progress Note: Quality VTE Deep Vein Thrombosis/Pulmonary Embolism Present on Admission: No
[2018-02-04] MEDS: Famotidine 20 MG Tablet PO SCH ×2 (09:58→21:02)
[2018-02-04 10:58] LABS: Hematocrit 44.6 % (39.0-51.0); Hemoglobin 15.6 gm/dL (13.0-17.0); Mean Corpuscular HGB Conc 34.9 % (32.0-36.0); Mean Corpuscular Hemoglobin 33.4 pg (27.0-34.0); Mean Corpuscular Volume 95.7 fL (80.0-100.0); Mean Platelet Volume 7.7 fL (7.0-11.0); Platelet Count 216 th/mm3 (150-450); Red Blood Count 4.66 mil/mm3 (4.50-5.90); White Blood Count 7.5 th/mm3 (4.0-11.0)
--- NOTE | 2018-02-04 11:08 | P.PNONC ---
Subjective Interval history: Afebrile Patient reports he is waiting to go to interventional radiology for Vas-Cath placement Feels like he has gotten stronger recently on the Mestinon He had many questions about plasma exchange that were answered Objective Vital Signs/Intake & Output: Vital Signs 02/03/18 12:50 02/03/18 16:00 02/03/18 20:00 Temperature 98.1 F 98.6 F 98.6 F Pulse Rate 61 56 L 69 Respiratory Rate 16 16 16 Blood Pressure 141/76 H 165/80 H 188/85 H Pulse Oximetry 93 L 93 L 94 L 02/04/18 00:00 02/04/18 04:00 02/04/18 08:37 Temperature 98.0 F 97.9 F 98.6 F Pulse Rate 53 L 49 L 86 Respiratory Rate 18 17 20 Blood Pressure 136/63 147/68 H 120/57 L Pulse Oximetry 94 L 93 L 91 L Intake & Output 02/03/18 02/04/18 02/04/18 18:59 06:59 18:59 Intake Total 1000 / 1000 1000 / 1000 Balance 1000 / 1000 1000 / 1000 Intake: IV 1000 / 1000 1000 / 1000 NS Inj 1,000 ML @ 70 mls/hr IV. 1000 / 1000 1000 / 1000 CONT .[id number] [facility] Rx#:[id number] Other: Date of Last Bowel Movement 01/31/18 Result Diagrams: 02/04/18 09:42 02/04/18 09:42 Laboratory Results: Laboratory Results - last 24 hr 02/03/18 02/03/18 02/03/18 07:35 12:42 18:19 WBC RBC Hgb Hct MCV MCH MCHC RDW Plt Count MPV POC Glucose 107 93 Hemoglobin A1c 6.0 02/04/18 09:42 WBC 7.5 RBC 4.66 Hgb 15.6 Hct 44.6 MCV 95.7 MCH 33.4 MCHC 34.9 RDW 13.0 Plt Count 216 MPV 7.7 POC Glucose Hemoglobin A1c Medications: Active Medications Generic Name Dose Route Start Last Admin Trade Name Freq PRN Reason Stop Dose Admin Aspirin 81 mg 02/02/18 09:00 02/04/18 09:17 Aspirin Chew PO 81 mg DAILY KAREN Administration Famotidine 10 mg 02/04/18 09:15 02/04/18 09:58 Pepcid PO 10 mg BID KAREN Administration Hydrochlorothiazide 12.5 mg 02/03/18 18:15 02/04/18 09:17 Microzide PO 12.5 mg DAILY KAREN Administration Sodium Chloride 1,000 mls @ 70 mls/hr 02/02/18 00:30 02/04/18 09:51 Ns Inj IV.CONT Not Given .[id number] KAREN Lisinopril 40 mg 02/02/18 09:00 02/04/18 09:17 Prinivil PO 40 mg DAILY KAREN Administration Pyridostigmine [place] 90 mg 02/03/18 12:00 02/04/18 06:31 Mestinon PO 90 mg Q6HR KAREN Administration Objective Remarks: GENERAL: Older male sitting up on side of bed talking with family members in no acute distress SKIN: Warm and dry. HEAD: Normocephalic. EYES: No scleral icterus. No injection or drainage. NECK: Supple, trachea midline. No JVD or lymphadenopathy. CARDIOVASCULAR: Distant heart sounds RESPIRATORY: Clear posteriorly. Breathing unlabored at rest. GASTROINTESTINAL: Abdomen soft, non-tender, nondistended. EXTREMITIES: No cyanosis, or edema. MUSCULOSKELETAL: Adequate muscle tone. NEUROLOGICAL: Awake and alert. Mild slurring. Assessment/Plan - Plan 67-year-old male with new diagnosis of myasthenia gravis. Hematology consulted to facilitate plasma exchange. 1. The patient will receive Vas-Cath placement this morning. Orders have been written and given to the nurse for plasma exchange. Dialysis team is aware and is planning to see him later today. Discussed with Dr. Allen. He anticipates giving him most of the care as outpatient. We will plan for every other day procedures x5. 2. I reviewed the risks and benefit of plasma exchange with the patient. He is agreeable. We will check his daily CBC and coags. 3. I anticipate his care will be transitioned to outpatient once he is cleared by neurology. Discussed with him that he will get treatment at the [facility] once this is arranged. - Attending Statement The exam, history, and the medical decision-making described in the above note were completed with the assistance of the mid-level provider. I reviewed and agree with the findings presented. I attest that I had a [id number] encounter with the patient on the same day, and personally performed and documented my assessment and findings in the medical record. Patient seen and examined He had Vas-Cath but again by IR today He had his first plasmapheresis this evening and has tolerated well Definitely his ptosis, speech and swallowing have improved after the first plasmapheresis Patient is complaining that he did not get his medications since he has been on the floor. I did talk to patient's RN Singh. He apologized that he was busy and will make sure that he will give his pending medication as soon as possible. Multiple family members present at bedside. They had many questions regarding the myasthenia gravis. I explained to them that this is not my specialty and I would defer these questions to the neurologist Dr. Guido. I was able to answer patients regarding the plasmapheresis procedure. His next plasmapheresis will be on Monday. After that we will be able to do it as an outpatient in our office. I will speak to Dr. Guido how many pheresis that he wants patient to have it.
[2018-02-04 11:09] LABS: INR 1.1 Ratio; Prothrombin Time 10.8 sec (9.8-11.6)
[2018-02-04 11:27] LABS: Calcium 9.2 mg/dL (8.5-10.1); Carbon Dioxide 26.4 meq/L (21.0-32.0); Magnesium 2.1 mg/dL (1.5-2.5); Potassium 3.9 meq/L (3.5-5.1)
[2018-02-04] MEDS ORDERED: *Heparin 10,000 UNITS/10 ML Vial Periprocedural ONLY ONE (12:36)
--- NOTE | 2018-02-04 12:55 | P.RAD ---
Post Procedure Progress Note - Pre Procedure Diagnosis (1) Ptosis - Post Procedure Diagnosis (1) Ptosis - Procedure Information Procedure Date: 02/04/18 Supervising Radiologist: Jerman Roberts MD Anesthesia: Local - Plan of Activity Patient to Unit: Nursing Unit Patient Condition: Good See PACS Report for procedural detail/treatment. [facility] Radiology Procedures right Internal Jugular Hemodialysis Catheter Non-Tunneled Placement Device: dual lumen
--- NOTE | 2018-02-04 13:34 | IR ---
EXAM DATE: 02/04/2018 12:58 PM EST AGE/SEX: 67 years / Male INDICATIONS: Patient with a history of myasthenia gravis. CLINICAL DATA: This is the patient's initial encounter. Patient reports that signs and symptoms have been present for 2 days and indicates a pain score of 0/10. MEDICAL/SURGICAL HISTORY: Diabetes. Hypertension. Hyperlipidemia CAD Heart cauterization COMPARISON: No prior exams available for comparison. FLUORO TIME (min): 0.1 IMAGE SERIES: 1 ACCESS SITE: Right internal jugular vein DEVICE(S): 14 [place] double lumen Vas Cath . . PROCEDURE : 1. Ultrasound guided venipuncture. 2. Fluoroscopic guidance. 3. Central line placement. The risks, benefits and alternatives to the procedure were explained and verbal and written consent w as obtained. The site was prepped in sterile fashion. Full sterile technique was used, including ca p, mask, sterile gloves and gown and a large sterile sheet. Hand hygiene and 2% chlorhexidine prep w as utilized per protocol for cutaneous antisepsis with appropriate dry time for site. Sterile gel an d sterile probe cover were utilized for ultrasound guidance. The skin and subcutaneous tissues were infiltrated with local anesthetic solution. A suitable site a rudolph the vein was selected with ultrasound and fluoroscopic guidance. A small incision was made. Th e vein was accessed under direct ultrasound visualization using the micropuncture technique. The kelby ropuncture set was exchanged for a 0.035 wire. The tract was dilated. The catheter was advanced int o position under direct fluoroscopic visualization, and was advanced with the tip at the junction of the superior vena cava and rt atrium. The catheter was fixed in place with suture and a sterile dres sing was applied. The patient tolerated the procedure well and there were no complications. CONCLUSION: 1. Uncomplicated line placement as above. Electronically signed by: Jerman Roberts MD Board Certified Radiologist 02/04/2018 1:33 PM EST
[2018-02-04] MEDS ORDERED: diphenhydrAMINE HCl 50 MG/ML VIAL IV.PUSH PRN (14:07)
[2018-02-04] MEDS ORDERED: Sodium Chlor 0.9% Inj 100 ML IV.SIG PRN (14:08)
[2018-02-04] MEDS ORDERED: Anticoagulant Citrate Dextrose 1,000 ML Solution EXTRACORPO ONE (14:15)
[2018-02-04] MEDS ORDERED: Heparin 2,000 UNITS/2 ML Vial (for IV use) IV.FLUSH ONE (14:15)
[2018-02-04] MEDS ORDERED: CALCIUM GLUCONATE IV.SIG ONE (15:00)
[2018-02-04] MEDS ORDERED: SODIUM CHLOR 0.9% IV.SIG ONE (15:00)
[2018-02-04] MEDS ORDERED: ALBUMIN HUMAN 5% IV.SIG ONE (15:00)
--- NOTE | 2018-02-04 16:42 | P.PN ---
Subjective Interval history: ALERT NAD FEELS STRONGER Physical Exam Vital signs: Vital Signs 02/03/18 20:00 02/04/18 00:00 02/04/18 04:00 Temperature 98.6 F 98.0 F 97.9 F Pulse Rate 69 53 L 49 L Respiratory Rate 16 18 17 Blood Pressure 188/85 H 136/63 147/68 H Pulse Oximetry 94 L 94 L 93 L 02/04/18 08:37 02/04/18 11:04 02/04/18 11:19 Temperature 98.6 F 98.6 F Pulse Rate 86 61 57 L Respiratory Rate 20 18 Blood Pressure 120/57 L 173/83 H Pulse Oximetry 91 L 98 02/04/18 14:09 02/04/18 14:29 02/04/18 14:31 Temperature 98.2 F Pulse Rate 55 L 69 65 Respiratory Rate 18 Blood Pressure 146/67 H Pulse Oximetry 97 Intake & Output 02/03/18 02/04/18 02/04/18 18:59 06:59 18:59 Intake Total 1000 / 1000 1000 / 1000 Balance 1000 / 1000 1000 / 1000 Intake: IV 1000 / 1000 1000 / 1000 NS Inj 1,000 ML @ 70 mls/hr IV. 1000 / 1000 1000 / 1000 CONT .[id number] [facility] Rx#:[id number] Other: Date of Last Bowel Movement 01/31/18 Narrative: no ptosis now and nl eye closure 2.5 hours after mestinon speech nl up ion chair - Constitutional no acute distress - Routine HEENT Exam Head: Present: normocephalic Eye: Present: EOMI ENT: Present: mucous membranes moist - Routine Neck Exam Present: supple - Routine Respiratory Exam Present: CTA bilaterally - Routine Cardiovascular Exam Present: RRR, S1, S2 Results - Labs CBC & Chem 7: 02/04/18 09:42 02/04/18 09:42 Laboratory Results - last 24 hr 02/03/18 02/04/18 02/04/18 18:19 09:42 09:42 WBC 7.5 RBC 4.66 Hgb 15.6 Hct 44.6 MCV 95.7 MCH 33.4 MCHC 34.9 RDW 13.0 Plt Count 216 MPV 7.7 PT 10.8 INR 1.1 Sodium Potassium Chloride Carbon Dioxide Anion Gap BUN Creatinine Estimated GFR POC Glucose 93 Random Glucose Calcium Magnesium 02/04/18 02/04/18 09:42 12:08 WBC RBC Hgb Hct MCV MCH MCHC RDW Plt Count MPV PT INR Sodium 140 Potassium 3.9 Chloride 107 Carbon Dioxide 26.4 Anion Gap 7 BUN 15 Creatinine 1.16 Estimated GFR 63 L POC Glucose 98 Random Glucose 108 H Calcium 9.2 Magnesium 2.1 - Imaging Impressions Catheter Placement 02/04/18 00:00 CONCLUSION: 1. Uncomplicated line placement as above. Assessment and Plan - Plan MYASTHENIA GRAVIS IMPROVING PLAN O2 NEEDED PULM TOILET FOR PLASMA PHORESIS
[2018-02-04] MEDS: predniSONE 20 MG Tablet PO SCH (21:03)
[2018-02-04 21:16] VITALS: RESP 20
[2018-02-05] MEDS: Pyridostigmine Bromide 60 MG Tablet PO SCH ×4 (06:25→18:00)
--- NOTE | 2018-02-05 08:09 | P.PNNEU ---
Subjective Active Medications: Active Medications Aspirin (Aspirin Chew) 81 mg PO DAILY [facility] Last Admin: 02/04/18 09:17 Dose: 81 mg Dextrose (D50w Vial) 50 ml IV.PUSH UNSCH PRN PRN Reason: per Hypoglycemic Protocol Diphenhydramine HCl (Diphenhydramine Inj) 25 mg IV.PUSH Q15M PRN PRN Reason: ALLERGIC RXN Diphenhydramine HCl (Diphenhydramine Inj) 25 mg IV.PUSH Q15M PRN PRN Reason: ALLERGIC RXN Famotidine (Pepcid) 10 mg PO BID [facility] Last Admin: 02/04/18 21:02 Dose: 10 mg Glucagon (Glucagon Inj) 1 mg OTHER UNSCH PRN PRN Reason: per Hypoglycemic Protocol Heparin Sodium (Porcine) (Heparin Inj) 1,000 units IV.FLUSH Q48H [facility] Stop: 02/12/18 09:01 Hydrochlorothiazide (Microzide) 12.5 mg PO DAILY [facility] Last Admin: 02/04/18 09:17 Dose: 12.5 mg Sodium Chloride (Ns Inj) 1,000 mls @ 70 mls/hr IV.CONT .[id number] [facility] Last Admin: 02/05/18 00:00 Dose: 70 mls/hr Sodium Chloride (Ns Inj) 100 mls @ 100 mls/hr IV.SIG UNSCH PRN PRN Reason: PRIME Calcium Gluconate 4 gm/ Sodium (Chloride) 290 mls @ 120 mls/hr IV.SIG Q48H [facility] Stop: 02/12/18 11:24 Albumin Human (Alburx 5% Inj) 4,000 mls @ 2,000 mls/hr IV.SIG Q48H [facility] Stop: 02/12/18 10:59 Lisinopril (Prinivil) 40 mg PO DAILY [facility] Last Admin: 02/04/18 09:17 Dose: 40 mg Prednisone (Deltasone) 60 mg PO DAILY [facility] Last Admin: 02/04/18 21:03 Dose: 20 mg Pyridostigmine [place] (Mestinon) 90 mg PO Q6HR [facility] Last Admin: 02/05/18 06:25 Dose: 90 mg Sodium Chloride (Ns Flush) 2 ml IV.FLUSH PRN PRN PRN Reason: FLUSH AFTER USING IV ACCESS Sodium Chloride (Ns Flush) 40 ml IV.FLUSH Q48H [facility] Stop: 02/12/18 09:01 Sodium Citrate (Acd-A Solution) 1,000 ml EXTRACORPO Q48H [facility] Stop: 02/12/18 09:01 Allergies/Adverse Reactions: Allergies Allergy/AdvReac Type Severity Reaction Status Date / Time No Known Allergies Allergy Verified 02/01/18 21:24 Physical Exam Vital signs: Vital Signs 02/04/18 08:37 02/04/18 11:04 02/04/18 11:19 Temperature 98.6 F 98.6 F Pulse Rate 86 61 57 L Respiratory Rate 20 18 Blood Pressure 120/57 L 173/83 H Pulse Oximetry 91 L 98 02/04/18 14:09 02/04/18 14:29 02/04/18 14:31 Temperature 98.2 F Pulse Rate 55 L 69 65 Respiratory Rate 18 Blood Pressure 146/67 H Pulse Oximetry 97 02/04/18 20:00 02/05/18 00:00 02/05/18 04:00 Temperature 97.3 F L 98.2 F 98.3 F Pulse Rate 64 68 72 Respiratory Rate 20 20 20 Blood Pressure 179/85 H 140/61 138/70 Pulse Oximetry 97 95 95 Intake & Output 02/04/18 02/05/18 02/05/18 18:59 06:59 18:59 Output Total 4000 / 4000 Balance -4000 / -4000 Output: Plasma Exchange Amount 4000 / 4000 Other: # Voids 1 Narrative: hr 60-70s no ptosis nl speech Objective Laboratory Results - last 24 hr 02/04/18 02/04/18 02/04/18 09:42 09:42 09:42 WBC 7.5 RBC 4.66 Hgb 15.6 Hct 44.6 MCV 95.7 MCH 33.4 MCHC 34.9 RDW 13.0 Plt Count 216 MPV 7.7 PT 10.8 INR 1.1 Sodium 140 Potassium 3.9 Chloride 107 Carbon Dioxide 26.4 Anion Gap 7 BUN 15 Creatinine 1.16 Estimated GFR 63 L POC Glucose Random Glucose 108 H Calcium 9.2 Magnesium 2.1 02/04/18 02/04/18 02/05/18 12:08 22:27 07:49 WBC RBC Hgb Hct MCV MCH MCHC RDW Plt Count MPV PT INR Sodium Potassium Chloride Carbon Dioxide Anion Gap BUN Creatinine Estimated GFR POC Glucose 98 162 H 128 H Random Glucose Calcium Magnesium Review/Management - Review/Management Plan: imp o2 sat 92-95 check abg inc mestinon to 1.5 pills q 6 hours feels better on mestinon but not back to nl ct chest neg but fatty liver he will ask med team about that check pft his is borderline diabetic and hx some cad recent stress test neg but tells me he has 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
[2018-02-05 08:45] LABS: Baso % (Auto) 0.3 % (0.0-2.0); Eos % (Auto) 0.3 % (0.0-4.0); Hematocrit 44.1 % (39.0-51.0); Hemoglobin 15.5 gm/dL (13.0-17.0); Lymph # (Auto) 2.1 th/mm3 (1.0-4.8); Lymph % (Auto) 21.8 % (9.0-44.0); Mean Corpuscular Hemoglobin 33.5 pg (27.0-34.0); Mean Corpuscular Volume 95.8 fL (80.0-100.0); Mean Platelet Volume 8.1 fL (7.0-11.0); Mono # (Auto) 0.8 th/mm3 (0.0-0.9); Neut # (Auto) 6.8 th/mm3 (1.8-7.7); Neut % (Auto) 69.6 % (16.0-70.0); Platelet Count 207 th/mm3 (150-450); Red Blood Count 4.61 mil/mm3 (4.50-5.90); White Blood Count 9.8 th/mm3 (4.0-11.0)
[2018-02-05] MEDS: Lisinopril 20 MG Tablet PO SCH (08:56)
[2018-02-05] MEDS: Famotidine 20 MG Tablet PO SCH ×2 (08:57→21:24)
[2018-02-05] MEDS: predniSONE 20 MG Tablet PO SCH (08:57)
[2018-02-05] MEDS ORDERED: predniSONE 20 MG Tablet PO SCH (09:00)
[2018-02-05 09:14] LABS: Calcium 8.9 mg/dL (8.5-10.1); Carbon Dioxide 23.5 meq/L (21.0-32.0); Magnesium 1.9 mg/dL (1.5-2.5); Potassium 4.2 meq/L (3.5-5.1)
[2018-02-05 10:50] LABS: RPR Screen For Reflex FTA Nonreactive (Nonreactive)
[2018-02-05] MEDS: Sod Chloride 0.9% Inj 1,000 ML IV.CONT SCH ×3 (12:26→14:51)
--- NOTE | 2018-02-05 15:14 | P.PNONC ---
Subjective Interval history: Patient sitting up in chair, working on math equations. He states he is feeling better after his first plasmapheresis treatment. He will have his second plasmapheresis tomorrow and then will be discharged. We have discussed he will [facility] his third plasmapheresis. He has been provided the telephone number. Objective Vital Signs/Intake & Output: Vital Signs 02/04/18 20:00 02/05/18 00:00 02/05/18 04:00 Temperature 97.3 F L 98.2 F 98.3 F Pulse Rate 64 68 72 Respiratory Rate 20 20 20 Blood Pressure 179/85 H 140/61 138/70 Pulse Oximetry 97 95 95 02/05/18 08:00 02/05/18 10:45 Temperature 98.1 F 97.4 F L Pulse Rate 72 62 Respiratory Rate 20 20 Blood Pressure 147/67 H 136/61 Pulse Oximetry 96 95 Intake & Output 02/04/18 02/05/18 02/05/18 18:59 06:59 18:59 Intake Total 1480 / 1480 Output Total 4000 / 4000 3 / 3 Balance -4000 / -4000 1477 / 1477 Weight 118.9 kg Intake: IV 1000 / 1000 NS Inj 1,000 ML @ 70 mls/hr IV. 1000 / 1000 CONT .[id number] [facility] Rx#:[id number] Oral 480 / 480 Output: Urine 3 / 3 Plasma Exchange Amount 4000 / 4000 Other: # Voids 1 Result Diagrams: 02/05/18 07:42 02/05/18 07:42 Laboratory Results: Laboratory Results - last 24 hr 02/02/18 02/02/18 02/04/18 10:55 10:55 13:24 WBC RBC Hgb Hct MCV MCH MCHC RDW Plt Count MPV Neut % (Auto) Lymph % (Auto) [place] % (Auto) Eos % (Auto) Baso % (Auto) Neut # (Auto) Lymph # (Auto) [place] # (Auto) Eos # (Auto) Baso # (Auto) WBC Differential Differential Comment Fibrinogen Sodium Potassium Chloride Carbon Dioxide Anion Gap BUN Creatinine Estimated GFR POC Glucose Random Glucose Calcium Magnesium Thiamine 131 EVA Screen Neg RPR Nonreactive 02/04/18 02/05/18 02/05/18 22:27 07:42 07:42 WBC 9.8 RBC 4.61 Hgb 15.5 Hct 44.1 MCV 95.8 MCH 33.5 MCHC 35.0 RDW 13.0 Plt Count 207 MPV 8.1 Neut % (Auto) 69.6 Lymph % (Auto) 21.8 [place] % (Auto) 8.0 Eos % (Auto) 0.3 Baso % (Auto) 0.3 Neut # (Auto) 6.8 Lymph # (Auto) 2.1 [place] # (Auto) 0.8 Eos # (Auto) 0.0 Baso # (Auto) 0.0 WBC Differential . Differential Comment Auto diff final Fibrinogen 152 L Sodium Potassium Chloride Carbon Dioxide Anion Gap BUN Creatinine Estimated GFR POC Glucose 162 H Random Glucose Calcium Magnesium Thiamine EVA Screen RPR 02/05/18 02/05/18 02/05/18 07:42 07:49 11:44 WBC RBC Hgb Hct MCV MCH MCHC RDW Plt Count MPV Neut % (Auto) Lymph % (Auto) [place] % (Auto) Eos % (Auto) Baso % (Auto) Neut # (Auto) Lymph # (Auto) [place] # (Auto) Eos # (Auto) Baso # (Auto) WBC Differential Differential Comment Fibrinogen Sodium 140 Potassium 4.2 Chloride 109 H Carbon Dioxide 23.5 Anion Gap 8 BUN 12 Creatinine 1.19 Estimated GFR 61 L POC Glucose 128 H 139 H Random Glucose 133 H Calcium 8.9 Magnesium 1.9 Thiamine EVA Screen RPR Medications: Active Medications Generic Name Dose Route Start Last Admin Trade Name Freq PRN Reason Stop Dose Admin Aspirin 81 mg 02/02/18 09:00 02/05/18 08:57 Aspirin Chew PO 81 mg DAILY [facility] Administration Famotidine 10 mg 02/04/18 09:15 02/05/18 08:57 Pepcid PO 10 mg BID [facility] Administration Hydrochlorothiazide 12.5 mg 02/03/18 18:15 02/05/18 08:57 Microzide PO 12.5 mg DAILY [facility] Administration Sodium Chloride 1,000 mls @ 70 mls/hr 02/02/18 00:30 02/05/18 14:51 Ns Inj IV.CONT Not Given .[id number] [facility] Lisinopril 40 mg 02/02/18 09:00 02/05/18 08:56 Prinivil PO 40 mg DAILY [facility] Administration Prednisone 60 mg 02/04/18 16:00 02/05/18 08:57 Deltasone PO 60 mg DAILY [facility] Administration Pyridostigmine [place] 90 mg 02/03/18 12:00 02/05/18 12:24 Mestinon PO 90 mg Q6HR [facility] Administration Objective Remarks: GENERAL: Older male sitting in chair, no acute distress. SKIN: Warm and dry. HEAD: Normocephalic. EYES: No scleral icterus. No injection or drainage. NECK: Supple, trachea midline. No JVD or lymphadenopathy. Vas-Cath to right jugular. CARDIOVASCULAR: Distant heart sounds RESPIRATORY: Clear posteriorly. Nonlabored at rest. GASTROINTESTINAL: Abdomen soft, non-tender, nondistended. EXTREMITIES: No cyanosis, or edema. MUSCULOSKELETAL: Adequate muscle tone. NEUROLOGICAL: No focal deficits noted. Awake and alert, oriented x3. Assessment/Plan - Plan 67-year-old male with new diagnosis of myasthenia gravis. Hematology consulted to facilitate plasma exchange. 1. Myasthenia gravis, status post plasmapheresis yesterday. This was his first treatment, we will plan for every other day procedures x5. 2. Check his daily CBC and coags. 3. He will remain in the hospital and receive his second plasmapheresis tomorrow, he may be discharged after this. He will have his third treatment in the [facility] center on Monday. He has been provided the telephone number and these arrangements are being made. Vas cath should remain in place for outpatient plasmapheresis. - Attending Statement The exam, history, and the medical decision-making described in the above note were completed with the assistance of the mid-level provider. I reviewed and agree with the findings presented. I attest that I had a [id number] encounter with the patient on the same day, and personally performed and documented my assessment and findings in the medical record. Patient is feeling much better. Speech and swallowing both have now back to the baseline No more ptosis Patient will have second pheresis tomorrow and then he will be discharged. He will come in this Monday to our office to get outpatient third pheresis. Arrangements have been made
--- NOTE | 2018-02-05 17:40 | P.PN ---
Subjective Interval history: alert up in chair no sob Physical Exam Vital signs: Vital Signs 02/04/18 20:00 02/05/18 00:00 02/05/18 04:00 Temperature 97.3 F L 98.2 F 98.3 F Pulse Rate 64 68 72 Respiratory Rate 20 20 20 Blood Pressure 179/85 H 140/61 138/70 Pulse Oximetry 97 95 95 02/05/18 08:00 02/05/18 10:45 02/05/18 16:10 Temperature 98.1 F 97.4 F L 98.1 F Pulse Rate 74 62 66 Respiratory Rate 20 20 20 Blood Pressure 147/67 H 136/61 137/65 Pulse Oximetry 96 95 96 Intake & Output 02/04/18 02/05/18 02/05/18 18:59 06:59 18:59 Intake Total 1480 / 1480 Output Total 4000 / 4000 3 / 3 Balance -4000 / -4000 1477 / 1477 Weight 118.9 kg Intake: IV 1000 / 1000 NS Inj 1,000 ML @ 70 mls/hr IV. 1000 / 1000 CONT .[id number] [facility] Rx#:[id number] Oral 480 / 480 Output: Urine 3 / 3 Plasma Exchange Amount 4000 / 4000 Other: # Voids 1 Narrative: hr 60-70s no ptosis nl speech - Constitutional no acute distress - Routine HEENT Exam Head: Present: normocephalic Eye: Present: EOMI, PERRL ENT: Present: mucous membranes moist - Routine Neck Exam Present: supple - Routine Respiratory Exam Present: CTA bilaterally - Routine Cardiovascular Exam Present: RRR, S1, S2 Results - Labs CBC & Chem 7: 02/05/18 07:42 02/05/18 07:42 Laboratory Results - last 24 hr 02/02/18 02/02/18 02/04/18 10:55 10:55 13:24 WBC RBC Hgb Hct MCV MCH MCHC RDW Plt Count MPV Neut % (Auto) Lymph % (Auto) [place] % (Auto) Eos % (Auto) Baso % (Auto) Neut # (Auto) Lymph # (Auto) [place] # (Auto) Eos # (Auto) Baso # (Auto) WBC Differential Differential Comment Fibrinogen Sodium Potassium Chloride Carbon Dioxide Anion Gap BUN Creatinine Estimated GFR POC Glucose Random Glucose Calcium Magnesium Thiamine 131 EVA Screen Neg RPR Nonreactive 02/04/18 02/05/18 02/05/18 22:27 07:42 07:42 WBC 9.8 RBC 4.61 Hgb 15.5 Hct 44.1 MCV 95.8 MCH 33.5 MCHC 35.0 RDW 13.0 Plt Count 207 MPV 8.1 Neut % (Auto) 69.6 Lymph % (Auto) 21.8 [place] % (Auto) 8.0 Eos % (Auto) 0.3 Baso % (Auto) 0.3 Neut # (Auto) 6.8 Lymph # (Auto) 2.1 [place] # (Auto) 0.8 Eos # (Auto) 0.0 Baso # (Auto) 0.0 WBC Differential . Differential Comment Auto diff final Fibrinogen 152 L Sodium Potassium Chloride Carbon Dioxide Anion Gap BUN Creatinine Estimated GFR POC Glucose 162 H Random Glucose Calcium Magnesium Thiamine EVA Screen RPR 02/05/18 02/05/18 02/05/18 07:42 07:49 11:44 WBC RBC Hgb Hct MCV MCH MCHC RDW Plt Count MPV Neut % (Auto) Lymph % (Auto) [place] % (Auto) Eos % (Auto) Baso % (Auto) Neut # (Auto) Lymph # (Auto) [place] # (Auto) Eos # (Auto) Baso # (Auto) WBC Differential Differential Comment Fibrinogen Sodium 140 Potassium 4.2 Chloride 109 H Carbon Dioxide 23.5 Anion Gap 8 BUN 12 Creatinine 1.19 Estimated GFR 61 L POC Glucose 128 H 139 H Random Glucose 133 H Calcium 8.9 Magnesium 1.9 Thiamine EVA Screen RPR 02/05/18 17:17 WBC RBC Hgb Hct MCV MCH MCHC RDW Plt Count MPV Neut % (Auto) Lymph % (Auto) [place] % (Auto) Eos % (Auto) Baso % (Auto) Neut # (Auto) Lymph # (Auto) [place] # (Auto) Eos # (Auto) Baso # (Auto) WBC Differential Differential Comment Fibrinogen Sodium Potassium Chloride Carbon Dioxide Anion Gap BUN Creatinine Estimated GFR POC Glucose 136 H Random Glucose Calcium Magnesium Thiamine EVA Screen RPR Assessment and Plan - Plan MYASTHENIA GRAVIS marked IMPROVment PLAN O2 NEEDED PULM TOILET FOR PLASMA PHORESIS
--- NOTE | 2018-02-05 22:41 | P.PNIM ---
Subjective Interval history: Follow up for Myasthenia Gravis. Patient is currently doing well. No fever, chills. Once in a while, for a brief period of time, he experiences some blurred vision or speech problems but overall much improved. He received first plasmapharesis yesterday. Physical Exam Vital signs: Last Vital Signs Temp 98.3 F 02/05/18 20:00 Pulse 80 02/05/18 20:00 Resp 20 02/05/18 20:00 BP 157/70 H 02/05/18 20:00 Pulse Ox 96 02/05/18 20:00 Intake & Output 02/03/18 02/04/18 02/05/18 02/06/18 06:59 06:59 06:59 06:59 Intake Total 1000 / 1000 1999 1480 / 1480 Output Total 4000 / 4000 3 / 3 Balance 1000 / 1000 1999 / 1999 -4000 / -4000 1477 / 1477 Weight 118.9 kg GENERAL: Alert, Oriented x 3, NAD. SKIN: Warm and dry. HEAD: Normocephalic. EYES: No scleral icterus. No injection or drainage. NECK: Supple, trachea midline. No JVD or lymphadenopathy. CARDIOVASCULAR: Regular rate and rhythm without murmurs, gallops, or rubs. RESPIRATORY: Breath sounds equal bilaterally. No accessory muscle use. GASTROINTESTINAL: Abdomen soft, non-tender, nondistended. MUSCULOSKELETAL: No cyanosis, or edema. Neuro: No focal deficits. No ptosis noted. BACK: Nontender without obvious deformity. No CVA tenderness. Results Labs CBC & Chem 7: 02/05/18 07:42 02/05/18 07:42 Assessment and Plan Plan Patient is a pleasant 67-year-old male with past medical history of hypertension , hyperlipidemia, diet-controlled prediabetes who presented with complaints of dysphagia, ptosis, and blurred vision concerning for acute neurological condition such as myasthenia gravis Myasthenia gravis Neurology following. We will plan on discharging patient home on 02/06/2018 after 2nd plasmapharesis. Prednisone 60mg Qday. Head CT, brain MRI, brain MRA, and all imaging thus far unremarkable. Continue pyridostigmine Physical therapy/occupational therapy evaluation Hypertension Continue Lisinopril, HCTZ. Full code. SCDs. Probable discharge in the AM after plasmapharesis. Progress Note: Quality VTE Deep Vein Thrombosis/Pulmonary Embolism Present on Admission: No
[2018-02-06] MEDS: Pyridostigmine Bromide 60 MG Tablet PO SCH ×3 (00:08→14:00)
[2018-02-06] MEDS: Sod Chloride 0.9% Inj 1,000 ML IV.CONT SCH (05:40)
[2018-02-06 07:02] LABS: Activated Partial Thrombo Time 25.4 sec (23.4-31.7); INR 1.1 Ratio; Prothrombin Time 10.7 sec (9.8-11.6)
[2018-02-06 07:11] LABS: Baso % (Auto) 0.2 % (0.0-2.0); Eos # (Auto) 0.1 th/mm3 (0.0-0.4); Eos % (Auto) 0.7 % (0.0-4.0); Hematocrit 40.3 % (39.0-51.0); Hemoglobin 14.2 gm/dL (13.0-17.0); Lymph # (Auto) 3.4 th/mm3 (1.0-4.8); Lymph % (Auto) 27.2 % (9.0-44.0); Mean Corpuscular HGB Conc 35.3 % (32.0-36.0); Mean Corpuscular Hemoglobin 33.6 pg (27.0-34.0); Mean Corpuscular Volume 95.2 fL (80.0-100.0); Mono # (Auto) 1.1 th/mm3 (0.0-0.9); Mono % (Auto) 8.6 % (0.0-8.0); Neut # (Auto) 7.9 th/mm3 (1.8-7.7); Neut % (Auto) 63.3 % (16.0-70.0); Platelet Count 184 th/mm3 (150-450); Red Blood Count 4.23 mil/mm3 (4.50-5.90); Red Cell Distribution Width 12.8 % (11.6-17.2); White Blood Count 12.5 th/mm3 (4.0-11.0)
[2018-02-06 07:20] LABS: Albumin 4.2 g/dL (3.4-5.0); Anion Gap 4 meq/L (5-15); Aspartate Aminotransferase 11 U/L (15-37); Blood Urea Nitrogen 14 mg/dL (7-18); Calcium 9.1 mg/dL (8.5-10.1); Carbon Dioxide 30.8 meq/L (21.0-32.0); Chloride 108 meq/L (98-107); Glomerular Filtration Rate 64 mL/min (>89); Glucose,Random 108 mg/dL (74-106); Potassium 4.5 meq/L (3.5-5.1); Sodium 143 meq/L (136-145)
[2018-02-06 07:21] LABS: Alanine Aminotransferase 22 U/L (12-78)
[2018-02-06 07:23] LABS: Alkaline Phosphatase 22 U/L (45-117); Total Protein 6.2 g/dL (6.4-8.2)
--- NOTE | 2018-02-06 08:10 | P.PNNEU ---
Subjective Active Medications: Active Medications Aspirin (Aspirin Chew) 81 mg PO DAILY [facility] Last Admin: 02/05/18 08:57 Dose: 81 mg Dextrose (D50w Vial) 50 ml IV.PUSH UNSCH PRN PRN Reason: per Hypoglycemic Protocol Diphenhydramine HCl (Diphenhydramine Inj) 25 mg IV.PUSH Q15M PRN PRN Reason: ALLERGIC RXN Diphenhydramine HCl (Diphenhydramine Inj) 25 mg IV.PUSH Q15M PRN PRN Reason: ALLERGIC RXN Famotidine (Pepcid) 10 mg PO BID [facility] Last Admin: 02/05/18 21:24 Dose: 10 mg Glucagon (Glucagon Inj) 1 mg OTHER UNSCH PRN PRN Reason: per Hypoglycemic Protocol Heparin Sodium (Porcine) (Heparin Inj) 1,000 units IV.FLUSH Q48H [facility] Stop: 02/12/18 09:01 Hydrochlorothiazide (Microzide) 12.5 mg PO DAILY [facility] Last Admin: 02/05/18 08:57 Dose: 12.5 mg Sodium Chloride (Ns Inj) 1,000 mls @ 70 mls/hr IV.CONT .[id number] [facility] Last Admin: 02/06/18 05:40 Dose: 70 mls/hr Sodium Chloride (Ns Inj) 100 mls @ 100 mls/hr IV.SIG UNSCH PRN PRN Reason: PRIME Albumin Human (Alburx 5% Inj) 4,000 mls @ 2,000 mls/hr IV.SIG Q48H [facility] Stop: 02/12/18 10:59 Calcium Gluconate 4 gm/ Sodium (Chloride) 290 mls @ 120 mls/hr IV.SIG Q48H [facility] Stop: 02/12/18 11:24 Lisinopril (Prinivil) 40 mg PO DAILY [facility] Last Admin: 02/05/18 08:56 Dose: 40 mg Prednisone (Deltasone) 60 mg PO DAILY [facility] Last Admin: 02/05/18 08:57 Dose: 60 mg Pyridostigmine [place] (Mestinon) 90 mg PO Q6HR [facility] Last Admin: 02/06/18 05:37 Dose: 90 mg Sodium Chloride (Ns Flush) 2 ml IV.FLUSH PRN PRN PRN Reason: FLUSH AFTER USING IV ACCESS Sodium Chloride (Ns Flush) 40 ml IV.FLUSH Q48H [facility] Stop: 02/12/18 09:01 Sodium Citrate (Acd-A Solution) 1,000 ml EXTRACORPO Q48H [facility] Stop: 02/12/18 09:01 Allergies/Adverse Reactions: Allergies Allergy/AdvReac Type Severity Reaction Status Date / Time No Known Allergies Allergy Verified 02/01/18 21:24 Physical Exam Vital signs: Vital Signs 02/05/18 10:45 02/05/18 16:10 02/05/18 20:00 Temperature 97.4 F L 98.1 F 98.3 F Pulse Rate 62 66 80 Respiratory Rate 20 20 20 Blood Pressure 136/61 137/65 157/70 H Pulse Oximetry 95 96 96 02/06/18 00:00 02/06/18 00:05 02/06/18 04:00 Temperature 98.1 F 97.7 F Pulse Rate 57 L 100 H 57 L Respiratory Rate 20 20 Blood Pressure 137/64 128/60 Pulse Oximetry 95 95 Intake & Output 02/05/18 02/06/18 02/06/18 18:59 06:59 18:59 Intake Total 1480 / 1480 1050 / 1050 Output Total 3 / 3 Balance 1477 / 1477 1050 / 1050 Weight 118.9 kg Intake: IV 1000 / 1000 1000 / 1000 NS Inj 1,000 ML @ 70 mls/hr IV. 1000 / 1000 1000 / 1000 CONT .[id number] [facility] Rx#:[id number] Oral 480 / 480 50 / 50 Output: Urine 3 / 3 Other: # Voids 3 Narrative: looks nl not feeling as well though no ptosis Objective Laboratory Results - last 24 hr 02/02/18 02/02/18 02/04/18 10:55 10:55 13:24 WBC RBC Hgb Hct MCV MCH MCHC RDW Plt Count MPV Neut % (Auto) Lymph % (Auto) [place] % (Auto) Eos % (Auto) Baso % (Auto) Neut # (Auto) Lymph # (Auto) [place] # (Auto) Eos # (Auto) Baso # (Auto) WBC Differential Differential Comment PT INR APTT Fibrinogen Sodium Potassium Chloride Carbon Dioxide Anion Gap BUN Creatinine Estimated GFR POC Glucose Random Glucose Calcium Magnesium Total Bilirubin AST ALT Alkaline Phosphatase Total Protein Albumin Thiamine 131 EVA Screen Neg RPR Nonreactive 02/05/18 02/05/18 02/05/18 07:42 07:42 07:42 WBC 9.8 RBC 4.61 Hgb 15.5 Hct 44.1 MCV 95.8 MCH 33.5 MCHC 35.0 RDW 13.0 Plt Count 207 MPV 8.1 Neut % (Auto) 69.6 Lymph % (Auto) 21.8 [place] % (Auto) 8.0 Eos % (Auto) 0.3 Baso % (Auto) 0.3 Neut # (Auto) 6.8 Lymph # (Auto) 2.1 [place] # (Auto) 0.8 Eos # (Auto) 0.0 Baso # (Auto) 0.0 WBC Differential . Differential Comment Auto diff final PT INR APTT Fibrinogen 152 L Sodium 140 Potassium 4.2 Chloride 109 H Carbon Dioxide 23.5 Anion Gap 8 BUN 12 Creatinine 1.19 Estimated GFR 61 L POC Glucose Random Glucose 133 H Calcium 8.9 Magnesium 1.9 Total Bilirubin AST ALT Alkaline Phosphatase Total Protein Albumin Thiamine EVA Screen RPR 02/05/18 02/05/18 02/05/18 11:44 17:17 20:20 WBC RBC Hgb Hct MCV MCH MCHC RDW Plt Count MPV Neut % (Auto) Lymph % (Auto) [place] % (Auto) Eos % (Auto) Baso % (Auto) Neut # (Auto) Lymph # (Auto) [place] # (Auto) Eos # (Auto) Baso # (Auto) WBC Differential Differential Comment PT INR APTT Fibrinogen Sodium Potassium Chloride Carbon Dioxide Anion Gap BUN Creatinine Estimated GFR POC Glucose 139 H 136 H 185 H Random Glucose Calcium Magnesium Total Bilirubin AST ALT Alkaline Phosphatase Total Protein Albumin Thiamine EVA Screen RPR 02/06/18 02/06/18 02/06/18 05:43 05:43 05:43 WBC 12.5 H RBC 4.23 L Hgb 14.2 Hct 40.3 MCV 95.2 MCH 33.6 MCHC 35.3 RDW 12.8 Plt Count 184 MPV 8.0 Neut % (Auto) 63.3 Lymph % (Auto) 27.2 [place] % (Auto) 8.6 H Eos % (Auto) 0.7 Baso % (Auto) 0.2 Neut # (Auto) 7.9 H Lymph # (Auto) 3.4 [place] # (Auto) 1.1 H Eos # (Auto) 0.1 Baso # (Auto) 0.0 WBC Differential . Differential Comment Auto diff final PT 10.7 INR 1.1 APTT 25.4 Fibrinogen 186 L Sodium 143 Potassium 4.5 Chloride 108 H Carbon Dioxide 30.8 Anion Gap 4 L BUN 14 Creatinine 1.14 Estimated GFR 64 L POC Glucose Random Glucose 108 H Calcium 9.1 Magnesium Total Bilirubin 0.6 AST 11 L ALT 22 Alkaline Phosphatase 22 L Total Protein 6.2 L D Albumin 4.2 Thiamine EVA Screen RPR Review/Management - Review/Management Plan: imp o2 sat 92-95 check abg inc mestinon to 1.5 pills q 6 hours feels better on mestinon but not back to nl ct chest neg but fatty liver he will ask med team about that check pft his is borderline diabetic and hx some cad recent stress test neg but tells me he has 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 02/06/18 ab still pend pex 2 today glucose up and needs pcp to follow this after dc or will need residents clinic very important ok for dc after pex today
[2018-02-06] MEDS: Famotidine 20 MG Tablet PO SCH (08:32)
[2018-02-06] MEDS: predniSONE 20 MG Tablet PO SCH (08:33)
[2018-02-06 08:44] VITALS: BP 112/67; PULSE 66; TEMP 98.5; O2SAT 97
[2018-02-06] MEDS ORDERED: SODIUM CHLOR 0.9% IV.SIG SCH ×4 (09:00)
[2018-02-06] MEDS ORDERED: ALBUMIN HUMAN 5% IV.SIG SCH (09:00)
[2018-02-06] MEDS ORDERED: Heparin 2,000 UNITS/2 ML Vial (for IV use) IV.FLUSH SCH (09:00)
[2018-02-06] MEDS ORDERED: CALCIUM GLUCONATE IV.SIG SCH ×4 (09:00)
[2018-02-06] MEDS ORDERED: diphenhydrAMINE HCl 50 MG/ML VIAL IV.PUSH PRN (09:00)
[2018-02-06] MEDS ORDERED: Anticoagulant Citrate Dextrose 1,000 ML Solution EXTRACORPO SCH (09:00)
--- NOTE | 2018-02-06 09:44 | P.PN ---
Subjective Interval history: alert amblating Physical Exam Vital signs: Vital Signs 02/05/18 10:45 02/05/18 16:10 02/05/18 20:00 Temperature 97.4 F L 98.1 F 98.3 F Pulse Rate 62 66 80 Respiratory Rate 20 20 20 Blood Pressure 136/61 137/65 157/70 H Pulse Oximetry 95 96 96 02/06/18 00:00 02/06/18 00:05 02/06/18 04:00 Temperature 98.1 F 97.7 F Pulse Rate 57 L 100 H 57 L Respiratory Rate 20 20 Blood Pressure 137/64 128/60 Pulse Oximetry 95 95 02/06/18 08:00 Temperature 98.5 F Pulse Rate 66 Respiratory Rate 20 Blood Pressure 112/67 Pulse Oximetry 97 Intake & Output 02/05/18 02/06/18 02/06/18 18:59 06:59 18:59 Intake Total 1480 / 1480 1050 / 1050 Output Total 3 / 3 Balance 1477 / 1477 1050 / 1050 Weight 118.9 kg Intake: IV 1000 / 1000 1000 / 1000 NS Inj 1,000 ML @ 70 mls/hr IV. 1000 / 1000 1000 / 1000 CONT .[id number] [facility] Rx#:[id number] Oral 480 / 480 50 / 50 Output: Urine 3 / 3 Other: # Voids 3 Narrative: looks nl not feeling as well though no ptosis Results - Labs CBC & Chem 7: 02/06/18 05:43 02/06/18 05:43 Laboratory Results - last 24 hr 02/02/18 02/02/18 02/04/18 10:55 10:55 13:24 WBC RBC Hgb Hct MCV MCH MCHC RDW Plt Count MPV Neut % (Auto) Lymph % (Auto) [place] % (Auto) Eos % (Auto) Baso % (Auto) Neut # (Auto) Lymph # (Auto) [place] # (Auto) Eos # (Auto) Baso # (Auto) WBC Differential Differential Comment PT INR APTT Fibrinogen Sodium Potassium Chloride Carbon Dioxide Anion Gap BUN Creatinine Estimated GFR POC Glucose Random Glucose Calcium Total Bilirubin AST ALT Alkaline Phosphatase Total Protein Albumin Thiamine 131 EVA Screen Neg RPR Nonreactive 02/05/18 02/05/18 02/05/18 11:44 17:17 20:20 WBC RBC Hgb Hct MCV MCH MCHC RDW Plt Count MPV Neut % (Auto) Lymph % (Auto) [place] % (Auto) Eos % (Auto) Baso % (Auto) Neut # (Auto) Lymph # (Auto) [place] # (Auto) Eos # (Auto) Baso # (Auto) WBC Differential Differential Comment PT INR APTT Fibrinogen Sodium Potassium Chloride Carbon Dioxide Anion Gap BUN Creatinine Estimated GFR POC Glucose 139 H 136 H 185 H Random Glucose Calcium Total Bilirubin AST ALT Alkaline Phosphatase Total Protein Albumin Thiamine EVA Screen RPR 02/06/18 02/06/18 02/06/18 05:43 05:43 05:43 WBC 12.5 H RBC 4.23 L Hgb 14.2 Hct 40.3 MCV 95.2 MCH 33.6 MCHC 35.3 RDW 12.8 Plt Count 184 MPV 8.0 Neut % (Auto) 63.3 Lymph % (Auto) 27.2 [place] % (Auto) 8.6 H Eos % (Auto) 0.7 Baso % (Auto) 0.2 Neut # (Auto) 7.9 H Lymph # (Auto) 3.4 [place] # (Auto) 1.1 H Eos # (Auto) 0.1 Baso # (Auto) 0.0 WBC Differential . Differential Comment Auto diff final PT 10.7 INR 1.1 APTT 25.4 Fibrinogen 186 L Sodium 143 Potassium 4.5 Chloride 108 H Carbon Dioxide 30.8 Anion Gap 4 L BUN 14 Creatinine 1.14 Estimated GFR 64 L POC Glucose Random Glucose 108 H Calcium 9.1 Total Bilirubin 0.6 AST 11 L ALT 22 Alkaline Phosphatase 22 L Total Protein 6.2 L D Albumin 4.2 Thiamine EVA Screen RPR 02/06/18 08:31 WBC RBC Hgb Hct MCV MCH MCHC RDW Plt Count MPV Neut % (Auto) Lymph % (Auto) [place] % (Auto) Eos % (Auto) Baso % (Auto) Neut # (Auto) Lymph # (Auto) [place] # (Auto) Eos # (Auto) Baso # (Auto) WBC Differential Differential Comment PT INR APTT Fibrinogen Sodium Potassium Chloride Carbon Dioxide Anion Gap BUN Creatinine Estimated GFR POC Glucose 98 Random Glucose Calcium Total Bilirubin AST ALT Alkaline Phosphatase Total Protein Albumin Thiamine EVA Screen RPR Assessment and Plan - Plan MYASTHENIA GRAVIS marked IMPROVment ambulating PLAN O2 NEEDED PULM TOILET PLASMA PHORESIS
[2018-02-06] MEDS: Lisinopril 20 MG Tablet PO SCH (10:35)
--- NOTE | 2018-02-06 13:57 | P.PNONC ---
Subjective Interval history: Patient arrived back to room, status post second plasmapheresis. He reports feeling well, currently eating lunch. He has an appointment with outpatient oncology for his third plasmapheresis on Monday. He has been given this information. Objective Vital Signs/Intake & Output: Vital Signs 02/05/18 16:10 02/05/18 20:00 02/06/18 00:00 Temperature 98.1 F 98.3 F 98.1 F Pulse Rate 66 80 57 L Respiratory Rate 20 20 20 Blood Pressure 137/65 157/70 H 137/64 Pulse Oximetry 96 96 95 02/06/18 00:05 02/06/18 04:00 02/06/18 08:00 Temperature 97.7 F 98.5 F Pulse Rate 100 H 57 L 66 Respiratory Rate 20 20 Blood Pressure 128/60 112/67 Pulse Oximetry 95 97 Intake & Output 02/05/18 02/06/18 02/06/18 18:59 06:59 18:59 Intake Total 1480 / 1480 1050 / 1050 Output Total 3 / 3 Balance 1477 / 1477 1050 / 1050 Weight 118.9 kg Intake: IV 1000 / 1000 1000 / 1000 NS Inj 1,000 ML @ 70 mls/hr IV. 1000 / 1000 1000 / 1000 CONT .[id number] [facility] Rx#:[id number] Oral 480 / 480 50 / 50 Output: Urine 3 / 3 Other: # Voids 3 Result Diagrams: 02/06/18 05:43 02/06/18 05:43 Laboratory Results: Laboratory Results - last 24 hr 02/02/18 02/02/18 02/05/18 10:55 10:55 17:17 WBC RBC Hgb Hct MCV MCH MCHC RDW Plt Count MPV Neut % (Auto) Lymph % (Auto) [place] % (Auto) Eos % (Auto) Baso % (Auto) Neut # (Auto) Lymph # (Auto) [place] # (Auto) Eos # (Auto) Baso # (Auto) WBC Differential Differential Comment PT INR APTT Fibrinogen Sodium Potassium Chloride Carbon Dioxide Anion Gap BUN Creatinine Estimated GFR POC Glucose 136 H Random Glucose Calcium Total Bilirubin AST ALT Alkaline Phosphatase Total Protein Albumin PEP Pathologist Comment EVA Screen Neg 02/05/18 02/06/18 02/06/18 20:20 05:43 05:43 WBC 12.5 H RBC 4.23 L Hgb 14.2 Hct 40.3 MCV 95.2 MCH 33.6 MCHC 35.3 RDW 12.8 Plt Count 184 MPV 8.0 Neut % (Auto) 63.3 Lymph % (Auto) 27.2 [place] % (Auto) 8.6 H Eos % (Auto) 0.7 Baso % (Auto) 0.2 Neut # (Auto) 7.9 H Lymph # (Auto) 3.4 [place] # (Auto) 1.1 H Eos # (Auto) 0.1 Baso # (Auto) 0.0 WBC Differential . Differential Comment Auto diff final PT 10.7 INR 1.1 APTT 25.4 Fibrinogen 186 L Sodium Potassium Chloride Carbon Dioxide Anion Gap BUN Creatinine Estimated GFR POC Glucose 185 H Random Glucose Calcium Total Bilirubin AST ALT Alkaline Phosphatase Total Protein Albumin PEP Pathologist Comment EVA Screen 02/06/18 02/06/18 05:43 08:31 WBC RBC Hgb Hct MCV MCH MCHC RDW Plt Count MPV Neut % (Auto) Lymph % (Auto) [place] % (Auto) Eos % (Auto) Baso % (Auto) Neut # (Auto) Lymph # (Auto) [place] # (Auto) Eos # (Auto) Baso # (Auto) WBC Differential Differential Comment PT INR APTT Fibrinogen Sodium 143 Potassium 4.5 Chloride 108 H Carbon Dioxide 30.8 Anion Gap 4 L BUN 14 Creatinine 1.14 Estimated GFR 64 L POC Glucose 98 Random Glucose 108 H Calcium 9.1 Total Bilirubin 0.6 AST 11 L ALT 22 Alkaline Phosphatase 22 L Total Protein 6.2 L D Albumin 4.2 PEP Pathologist Comment EVA Screen Medications: Active Medications Generic Name Dose Route Start Last Admin Trade Name Sharifq PRN Reason Stop Dose Admin Aspirin 81 mg 02/02/18 09:00 02/06/18 08:32 Aspirin Chew PO 81 mg DAILY KAREN Administration Famotidine 10 mg 02/04/18 09:15 02/06/18 08:32 Pepcid PO 10 mg BID KAREN Administration Hydrochlorothiazide 12.5 mg 02/03/18 18:15 02/06/18 08:32 Microzide PO 12.5 mg DAILY KAREN Administration Sodium Chloride 1,000 mls @ 70 mls/hr 02/02/18 00:30 02/06/18 05:40 Ns Inj IV.CONT 70 mls/hr .[id number] KAREN Administration Lisinopril 40 mg 02/02/18 09:00 02/06/18 10:35 Prinivil PO Not Given DAILY KAREN Prednisone 60 mg 02/04/18 16:00 02/06/18 08:33 Deltasone PO 60 mg DAILY KAREN Administration Pyridostigmine [place] 90 mg 02/03/18 12:00 02/06/18 05:37 Mestinon PO 90 mg Q6HR KAREN Administration Objective Remarks: GENERAL: Well-nourished, well-developed male patient, no acute distress. SKIN: Warm and dry. HEAD: Normocephalic. EYES: No scleral icterus. No injection or drainage. NECK: Supple, trachea midline. No JVD or lymphadenopathy. Vas-Cath to right jugular. CARDIOVASCULAR: Distant heart sounds RESPIRATORY: Clear posteriorly. Nonlabored at rest. GASTROINTESTINAL: Abdomen soft, non-tender, nondistended. EXTREMITIES: No cyanosis, or edema. MUSCULOSKELETAL: Adequate muscle tone. NEUROLOGICAL: No focal deficits noted. Awake and alert, oriented x3. Assessment/Plan - Plan 67-year-old male with new diagnosis of myasthenia gravis. Hematology consulted to facilitate plasma exchange. 1. Myasthenia gravis, status post 2nd plasmapheresis today. 2. Patient is cleared for discharge from a hematology standpoint. We have made arrangements in the outpatient clinic for him to have his third plasmapheresis on Monday. 3. Vas cath should remain in place for outpatient plasmapheresis. - Attending Statement The exam, history, and the medical decision-making described in the above note were completed with the assistance of the mid-level provider. I reviewed and agree with the findings presented. I attest that I had a [id number] encounter with the patient on the same day, and personally performed and documented my assessment and findings in the medical record. Patient is feeling better Denies any new complaint He will have his second plasmapheresis today After diaphoresis he could be discharged from my standpoint I have arrange third plasmapheresis for this Monday at our office Sign off Available as needed
--- NOTE | 2018-02-06 17:25 | P.DS ---
DS: Providers Date of admission: 02/02/18 09:29 Primary care physician: UNKNOWN Consults: 02/02/18 00:25 Consult to Neurology Routine Consulting Provider: Jerman Allen Reason for Consultation: r/o stroke Notified:: Service Spoke with:: Rodrigo Date Notified:: 02/02/18 Time Notified:: 00:50 Ordering Provider: SHU 02/03/18 09:19 Consult to Hematology Routine Consulting Provider: Wanda Da Silva Reason for Consultation: plasma exchange today Notified:: Service Spoke with:: daren Date Notified:: 02/03/18 Time Notified:: 09:47 Ordering Provider: SABINE 02/03/18 09:24 Consult to Pulmonology Routine Consulting Provider: Sharon Herrera Reason for Consultation: MG and sob need pft etc Notified:: Service Spoke with:: missy Date Notified:: 02/03/18 Time Notified:: 09:33 Ordering Provider: SABINE 02/03/18 15:47 Consult to Vascular Surgery Routine Consulting Provider: Barry Kidd Reason for Consultation: vasc cath placement for plasma exchange for myasthenia gravis hospitalist [phone] clarissa braun Notified:: Physician Spoke with:: tahmina/cosme dunn Date Notified:: 02/03/18 Time Notified:: 15:57 Ordering Provider: JORGE Brief History from admission: 67-year-old male with history of hypertension, CAD (no stents), hyperlipidemia, diet-controlled prediabetes, presents with multiple neurological complaints. Patient states he started to notice some unusual symptoms about a month ago when he was swimming in a pool and became very short of breath and took him a long time to recover. He states at he recovered from this, then had another episode of shortness of breath at rest a week later. Then he states over the past few days he has noticed some difficulty swallowing secondary to weakness of the jaw and throat. Denies any choking on his food. He also noticed his left eyelid has been more droopy and he has difficulty keeping his eyelids open. He also reports blurred vision and unable to focus on objects. He denies any headache, lightheadedness, dizziness , or unilateral numbness/tingling. He denies any difficulty with ambulation. Denies any chest pain or palpitations. He takes a baby aspirin daily along with blood pressure and cholesterol medications. He denies any other medical complaints at this time. DS: Summary Mr. Briscoe is a pleasant 67-year-old male who was admitted to the hospital due to myasthenia gravis symptoms. Neurology evaluated patient and started patient on plasmapheresis as well as pyridostigmine, prednisone. Patient received 2 treatments of plasmapheresis per hematology service. He will continue plasmapheresis at the hematology clinic. I discussed with neurology on the day of discharge 02/06/2018. Neurologist recommended continuing pyridostigmine and prednisone 60 mg daily. Neurologist will taper off prednisone after evaluating patient in the outpatient setting. Continues to do well. Denies any acute concerns. I discussed with patient's regarding obtaining a primary care physician. She is actively calling around to make an appointment for patient. All questions answered. Time Spent with Patient Total time spent providing and/or coordinating discharge services: Less than 30 minutes Quality: VTE Deep Vein Thrombosis/Pulmonary Embolism Present on Admission: No Exam Narrative Exam Narrative: GENERAL: Alert, oriented x3, NAD. SKIN: Warm and dry. HEAD: Normocephalic. EYES: No scleral icterus. No injection or drainage. NECK: Supple, trachea midline. No JVD or lymphadenopathy. CARDIOVASCULAR: Regular rate and rhythm without murmurs, gallops, or rubs. RESPIRATORY: Breath sounds equal bilaterally. No accessory muscle use. GASTROINTESTINAL: Abdomen soft, non-tender, nondistended. MUSCULOSKELETAL: No cyanosis, or edema. BACK: Nontender without obvious deformity. No CVA tenderness. Results Labs on day of discharge: Labs from last 24 hours 02/06/18 02/06/18 02/06/18 08:31 05:43 05:43 WBC RBC Hgb Hct MCV MCH MCHC RDW Plt Count MPV Neut % (Auto) Lymph % (Auto) [place] % (Auto) Eos % (Auto) Baso % (Auto) Neut # (Auto) Lymph # (Auto) [place] # (Auto) Eos # (Auto) Baso # (Auto) WBC Differential Differential Comment PT 10.7 INR 1.1 APTT 25.4 Fibrinogen 186 L Sodium 143 Potassium 4.5 Chloride 108 H Carbon Dioxide 30.8 Anion Gap 4 L BUN 14 Creatinine 1.14 Estimated GFR 64 L POC Glucose 98 Random Glucose 108 H Calcium 9.1 Total Bilirubin 0.6 AST 11 L ALT 22 Alkaline Phosphatase 22 L Total Protein 6.2 L D Albumin 4.2 PEP Pathologist Comment 02/06/18 02/05/18 02/02/18 05:43 20:20 10:55 WBC 12.5 H RBC 4.23 L Hgb 14.2 Hct 40.3 MCV 95.2 MCH 33.6 MCHC 35.3 RDW 12.8 Plt Count 184 MPV 8.0 Neut % (Auto) 63.3 Lymph % (Auto) 27.2 [place] % (Auto) 8.6 H Eos % (Auto) 0.7 Baso % (Auto) 0.2 Neut # (Auto) 7.9 H Lymph # (Auto) 3.4 [place] # (Auto) 1.1 H Eos # (Auto) 0.1 Baso # (Auto) 0.0 WBC Differential . Differential Comment Auto diff final PT INR APTT Fibrinogen Sodium Potassium Chloride Carbon Dioxide Anion Gap BUN Creatinine Estimated GFR POC Glucose 185 H Random Glucose Calcium Total Bilirubin AST ALT Alkaline Phosphatase Total Protein Albumin PEP Pathologist Comment Impressions ITS Impressions Chest X-Ray 02/01/18 21:42 CONCLUSION: 1. No acute cardiopulmonary disease. Head CT 02/01/18 21:42 CONCLUSION: No acute intracranial abnormality. . Carotid Doppler Study 02/02/18 00:00 CONCLUSION: Negative examination for a hemodynamically significant carotid stenosis. Dilip Enrique MD FACR Chest CT 02/02/18 00:00 CONCLUSION: 1. There is no apical lung mass. 2. Significant coronary calcifications 3. Marked fatty liver with gynecomastia Head MRI 02/02/18 22:43 CONCLUSION: No intracranial abnormality is seen. Head MRA 02/02/18 22:43 CONCLUSION: Negative MRA. Head/Brain Mag Res Venography 02/02/18 22:43 CONCLUSION: The dural sinuses are patent. Catheter Placement 02/04/18 00:00 CONCLUSION: 1. Uncomplicated line placement as above. Discharge Plan Discharge Disposition Patient Disposition: 01 Discharge Home Discharge Condition Condition: Stable Discharge Order Discharge Orders: Discharge Order (Routine); Ordered 02/06/18 Ordered By: Josefina Dupont Discharge Details Anticipated Discharge Date: 02/06/18 Discharge Comment: Okay to discharge after plasmapheresis. Physicians Team Primary Care Provider: UNKNOWN, Attending Provider: Josefina Dupont Other Providers: Jerman Allen ; Wanda Da Silva ; Sharon Herrera ; Barry Kidd Rxs /Orders / Referrals /Forms Prescriptions: New prednisone 20 mg Tablet 60 mg PO DAILY 14 Days Qty: 42 RF: 0 famotidine 20 mg Tablet 10 mg PO BID Qty: 60 RF: 0 pyridostigmine bromide 60 mg Tablet 90 mg PO Q6HR 30 Days Qty: 120 RF: 0 Continue lisinopril 40 mg Tablet 40 mg PO DAILY RF: 0 evolocumab [Repatha Syringe] 140 mg/mL Syringe 140 mg SUBCUT Q2W RF: 0 hydrochlorothiazide 12.5 mg Tablet 12.5 mg PO DAILY RF: 0 omega 2-ttx-ldp-fish oil [Fish Oil] 1,000 mg (120 mg-180 mg) Capsule 3,000 mg DAILY RF: 0 coenzyme Q10 [CoQ-10] 100 mg Capsule 100 mg PO DAILY RF: 0 [id number]-epniqaouo-vma C-Mn [Glucosamine Chondroitin MaxStr] 500-400 mg Capsule 3 tab DAILY RF: 0 meloxicam 7.5 mg Tablet 7.5 mg PO DAILY RF: 0 fenofibric acid 105 mg Tablet 135 mg PO DAILY RF: 0 Referrals: Jerman Allen MD [Physician] - 02/15/18 12:00 am (Dr. Allen stated that patient will see him in the office on 02/15/2018. ) UNKNOWN, [Primary Care Provider] - See Instructions Discharge Instructions Patient Printed Instructions: Famotidine (By mouth), Prednisone (By mouth), Pyridostigmine [place] (By mouth), How to Check your Blood Sugar (GEN) Status ED Status: Left Department Discharge Information Discharge Date/Time: 02/06/18 15:51
== END 2018-02-06 15:51 | disposition home or self-care (01) ==
LOC: NEDA 21:07 → NEPE 21:07 → NEPFCDU 02-02 02:24 → N05 02-04 17:51
PROVIDERS: ADMIT Hospitalist; ATTEND Hospitalist